=== PATIENT | male | born 1935 | race Caucasian/White ===

== ENCOUNTER 2019-05-16 09:51 | Outpatient (CLI) | payer MEDICARE, SELFPAY ==
[2019-05-16 10:24] LABS: Add Urine Microscopic? YES; Appearance Urine Clear (Clear); Bilirubin Urine Negative (Negative); Blood Urine Negative (Negative); Color Urine Yellow (Yellow); Glucose Urine UA Negative (Negative); Hyaline Casts Urine 30-49 /lpf; Ketones Urine Negative (Negative); Leukocyte Esterase Ur Negative LEU/UL (NEGATIVE); Mucus Urine Rare /lpf; Nitrate Urine Negative (Negative); Protein Urine Negative (Negative); Specific Grav Ur 1.018 (1.001-1.035); WBC Urine 0-3 /hpf (0-3)
== END 2019-05-16 09:52 | disposition home or self-care (01) ==
LOC: ANHLAB 09:53
PROVIDERS: PCP Family Medicine; Visit Provider Physician Assistant
DX: R31.9 Hematuria, unspecified (principal)
CPT/HCPCS: 81001; 87086

== ENCOUNTER 2019-07-03 14:59 | Outpatient (CLI) | payer MEDICARE, SELFPAY ==
[2019-07-03 15:16] LABS: Basophils Percent Auto 0.2 % (0.2-1.2); Eosinophils Percent Auto 0.3 % (0-4.4); Hematocrit 41.1 % (42.0-52.0); Hemoglobin 13.1 g/dL (14.0-18.0); Immature Granulocyte Absolute 0.04 K/mm3 (0.00-0.031); Immature Granulocyte Percent A 0.6 % (0-0.5); Lymphocytes Absolute Auto 1.82 K/mm3 (0.9-3.2); Lymphocytes Percent Auto 28.6 % (18.3-44.2); Mean Corpuscular HGB Conc 31.9 g/dl (32-36); Mean Corpuscular Volume 87.8 fl (80-100); Mean Platelet Volume 8.6 fl (7.4-10.4); Monocytes Absolute Auto 1.1 K/mm3 (0.1-0.6); Monocytes Percent Auto 17.1 % (2.6-8.5); Neutrophils Absolute Auto 3.4 K/mm3 (1.3-6.7); Neutrophils Percent Auto 53.2 % (45.5-73.1); Platelet Count Result 297 k/mm3 (150-375); Red Blood Count 4.68 M/mm3 (4.6-6.20); Red Cell Distribution Width 13.4 % (11.5-14.5); White Blood Count 6.4 K/mm3 (4.5-10.0)
[2019-07-03 16:44] LABS: Iron 43 ug/dL (49-181)
[2019-07-03 16:54] LABS: Percent Iron Saturation 16 % (20-50)
[2019-07-03 19:46] LABS: Alanine Aminotransferase 20 U/L (4-50); Albumin Level 4.5 g/dL (3.5-5.1); Alkaline Phosphatase 107 U/L (38-126); Aspartate Amino Transferase 26 U/L (17-59); Bilirubin,Total 0.4 mg/dL (0.2-1.3); Blood Urea Nitrogen 16 mg/dL (9-20); Calcium 9.2 mg/dL (8.4-10.2); Carbon Dioxide 28 mmol/L (22-30); Chloride 97 mmol/L (98-107); Estimated Glomerular Filt Rate > 60; Glucose 95 mg/dL (75-110); Lactate Dehydrogenase 403 U/L (313-618); Potassium 4.9 mmol/L (3.4-5.0); Sodium 137 mmol/L (137-145)
[2019-07-03 21:14] LABS: Folic Acid > 20.0 ng/mL (2.76->20)
== END 2019-07-03 15:00 | disposition home or self-care (01) ==
LOC: ANHLAB 15:02
PROVIDERS: PCP Family Medicine; Visit Provider Internal Medicine Hematology & Oncology
DX: D72.819 Decreased white blood cell count, unspecified (principal); D64.9 Anemia, unspecified
CPT/HCPCS: 36415; 80053; 82607; 82728; 82746; 83540; 83550; 83615; 85025; 86038; 88184; 88185

== ENCOUNTER 2019-07-09 07:40 | Outpatient (CLI) | payer MEDICARE, SELFPAY ==
--- NOTE | ~2019-07-09 | US_ITS ---
EXAMINATION: US abdomen complete DATE: 07/09/2019 08:19 INDICATION: Leukopenia TECHNIQUE: Multiple grayscale and Doppler ultrasound images of the abdomen were obtained. COMPARISON: CT, 11/17/2010 FINDINGS: The head and and body of the pancreas are normal. The pancreatic tail is obscured by bowel gas. Cysts of the liver measuring up to 1.4 cm are stable since the comparison CT examination. The l iver is normal with normal echogenicity and echotexture. No surface nodularity. Normal hepatopetal fl ow in the main portal vein. The gallbladder is normal with no abnormal wall thickening, pericholecyst ic fluid or stones. The normal common bile duct measures 7 mm. There was no sonographic Eastman sign. The visualized portions of the aorta and inferior vena cava are normal. The right kidney measures 10.4 x 4.9 x 4.9 cm. The left kidney measures 12.1 x 5.1 x 5.5 cm. The kidn eys demonstrate normal parenchymal echogenicity. There is no hydronephrosis. The spleen is normal in appearance and measures 10.9 cm cm. IMPRESSION: 1. No sonographic correlate for the patient's symptoms. Reviewed, dictated and finalized at location B.
== END 2019-07-09 07:41 | disposition home or self-care (01) ==
LOC: ANHIMG 07:44
PROVIDERS: PCP Family Medicine; Visit Provider Internal Medicine Hematology & Oncology
DX: D72.819 Decreased white blood cell count, unspecified (principal)
CPT/HCPCS: 76700

== ENCOUNTER 2019-10-22 09:14 | Outpatient (CLI) | payer MEDICARE, SELFPAY ==
[2019-10-22 09:41] LABS: Basophils Percent Auto 0.2 % (0.2-1.2); Eosinophils Absolute Auto 0.1 K/mm3 (0-0.3); Eosinophils Percent Auto 1.6 % (0-4.4); Hematocrit 42.4 % (42.0-52.0); Hemoglobin 13.5 g/dL (14.0-18.0); Immature Granulocyte Absolute 0.02 K/mm3 (0.00-0.031); Immature Granulocyte Percent A 0.5 % (0-0.5); Lymphocytes Absolute Auto 1.63 K/mm3 (0.9-3.2); Mean Corpuscular HGB Conc 31.8 g/dl (32-36); Mean Corpuscular Hemoglobin 27.2 pg (26-34); Mean Corpuscular Volume 85.5 fl (80-100); Mean Platelet Volume 9.3 fl (7.4-10.4); Monocytes Absolute Auto 0.8 K/mm3 (0.1-0.6); Monocytes Percent Auto 17.9 % (2.6-8.5); Neutrophils Absolute Auto 1.8 K/mm3 (1.3-6.7); Neutrophils Percent Auto 41.8 % (45.5-73.1); Platelet Count Result 348 k/mm3 (150-375); Red Blood Count 4.96 M/mm3 (4.6-6.20); Red Cell Distribution Width 13.8 % (11.5-14.5); White Blood Count 4.3 K/mm3 (4.5-10.0)
[2019-10-22 11:38] LABS: Alanine Aminotransferase 18 U/L (4-50); Albumin Level 4.4 g/dL (3.5-5.1); Alkaline Phosphatase 84 U/L (38-126); Aspartate Amino Transferase 27 U/L (17-59); Bilirubin,Total 0.8 mg/dL (0.2-1.3); Blood Urea Nitrogen 12 mg/dL (9-20); Carbon Dioxide 26 mmol/L (22-30); Chloride 102 mmol/L (98-107); Estimated Glomerular Filt Rate > 60; Glucose 92 mg/dL (75-110); Iron 85 ug/dL (49-181); Potassium 4.9 mmol/L (3.4-5.0); Sodium 138 mmol/L (137-145)
[2019-10-22 11:47] LABS: Percent Iron Saturation 33 % (20-50)
== END 2019-10-22 09:15 | disposition home or self-care (01) ==
PROVIDERS: PCP Family Medicine; Visit Provider Internal Medicine Hematology & Oncology
DX: D64.9 Anemia, unspecified (principal); D72.819 Decreased white blood cell count, unspecified
CPT/HCPCS: 36415; 80053; 82728; 83540; 83550; 85025

== ENCOUNTER 2019-11-26 06:43 | Outpatient (CLI) | payer MEDICARE, SELFPAY ==
[2019-11-26 07:14] LABS: Add Urine Microscopic? NO; Appearance Urine Clear (Clear); Bilirubin Urine Negative (Negative); Blood Urine Negative (Negative); Color Urine Yellow (Yellow); Glucose Urine UA Negative (Negative); Ketones Urine Negative (Negative); Leukocyte Esterase Ur Negative LEU/UL (NEGATIVE); Nitrate Urine Negative (Negative); Protein Urine Negative (Negative); Specific Grav Ur 1.016 (1.001-1.035); Urobilinogen Urine Negative mg/dL (<2.0)
[2019-11-26 07:27] LABS: Alanine Aminotransferase 18 U/L (4-50); Albumin Level 4.2 g/dL (3.5-5.1); Alkaline Phosphatase 79 U/L (38-126); Anion Gap 8 mmol/L (8-16); Aspartate Amino Transferase 30 U/L (17-59); Bilirubin,Total 0.6 mg/dL (0.2-1.3); Blood Urea Nitrogen 20 mg/dL (9-20); Calcium 8.9 mg/dL (8.4-10.2); Carbon Dioxide 28 mmol/L (22-30); Chloride 102 mmol/L (98-107); Estimated Glomerular Filt Rate 58; Glucose 93 mg/dL (75-110); Potassium 4.7 mmol/L (3.4-5.0); Sodium 138 mmol/L (137-145)
== END 2019-11-26 06:44 | disposition home or self-care (01) ==
PROVIDERS: PCP Family Medicine; Visit Provider Physician Assistant
DX: R31.9 Hematuria, unspecified (principal); I11.9 Hypertensive heart disease without heart failure
CPT/HCPCS: 36415; 80053; 81003

== ENCOUNTER 2020-04-26 09:02 | Outpatient (CLI) | payer MEDICARE, SELFPAY ==
[2020-04-26 09:20] LABS: Basophils Percent Auto 0.2 % (0.2-1.2); Eosinophils Absolute Auto 0.1 K/mm3 (0-0.3); Eosinophils Percent Auto 1.4 % (0-4.4); Hematocrit 46.9 % (42.0-52.0); Hemoglobin 15.1 g/dL (14.0-18.0); Immature Granulocyte Absolute 0.06 K/mm3 (0.00-0.031); Immature Granulocyte Percent A 1.4 % (0-0.5); Lymphocytes Absolute Auto 1.55 K/mm3 (0.9-3.2); Lymphocytes Percent Auto 35.1 % (18.3-44.2); Mean Corpuscular HGB Conc 32.2 g/dl (32-36); Mean Corpuscular Hemoglobin 26.8 pg (26-34); Mean Corpuscular Volume 83.3 fl (80-100); Monocytes Absolute Auto 0.8 K/mm3 (0.1-0.6); Monocytes Percent Auto 17.5 % (2.6-8.5); Neutrophils Percent Auto 44.4 % (45.5-73.1); Platelet Count Result 386 k/mm3 (150-375); Red Blood Count 5.63 M/mm3 (4.6-6.20); Red Cell Distribution Width 13.6 % (11.5-14.5); White Blood Count 4.4 K/mm3 (4.5-10.0)
[2020-04-26 09:25] LABS: Atypical Lymphocytes Present
[2020-04-26 11:27] LABS: Iron 103 ug/dL (49-181)
[2020-04-26 11:36] LABS: Percent Iron Saturation 36 % (20-50)
[2020-04-26 12:34] LABS: Alanine Aminotransferase 24 U/L (4-50); Albumin Level 4.2 g/dL (3.5-5.1); Alkaline Phosphatase 82 U/L (38-126); Aspartate Amino Transferase 31 U/L (17-59); Bilirubin,Total 0.8 mg/dL (0.2-1.3); Blood Urea Nitrogen 11 mg/dL (9-20); Calcium 9.1 mg/dL (8.4-10.2); Carbon Dioxide 31 mmol/L (22-30); Estimated Glomerular Filt Rate > 60; Glucose 154 mg/dL (75-110)
[2020-04-26 14:22] LABS: Anion Gap 7 mmol/L (8-16); Chloride 100 mmol/L (98-107); Potassium 4.4 mmol/L (3.4-5.0); Sodium 138 mmol/L (137-145)
== END 2020-04-26 09:03 | disposition home or self-care (01) ==
LOC: ANHLAB 09:04
PROVIDERS: PCP Family Medicine; Visit Provider Internal Medicine Hematology & Oncology
DX: D64.9 Anemia, unspecified (principal)
CPT/HCPCS: 36415; 80053; 82728; 83540; 83550; 85025

== ENCOUNTER 2020-12-29 06:50 | Outpatient (CLI) | payer MEDICARE, SELFPAY ==
[2020-12-29 07:25] LABS: Hematocrit 51.5 % (42.0-52.0); Hemoglobin 16.5 g/dL (14.0-18.0); Mean Corpuscular Hemoglobin 28.4 pg (26-34); Mean Corpuscular Volume 88.8 fl (80-100); Mean Platelet Volume 9.3 fl (7.4-10.4); Platelet Count Result 557 k/mm3 (150-375); Red Cell Distribution Width 15.9 % (11.5-14.5); White Blood Count 6.2 K/mm3 (4.5-10.0)
[2020-12-29 07:29] LABS: Add Urine Microscopic? YES; Appearance Urine Clear (Clear); Bilirubin Urine Negative (Negative); Blood Urine Negative (Negative); Color Urine Yellow (Yellow); Glucose Urine UA Negative (Negative); Ketones Urine Negative (Negative); Leukocyte Esterase Ur Negative LEU/UL (NEGATIVE); Mucus Urine Rare /lpf; Nitrate Urine Negative (Negative); Protein Urine 1+ mg/dL (Negative); Specific Grav Ur 1.016 (1.001-1.035); Squamous Epithelial Cell Urine Rare /hpf (Few); Urobilinogen Urine Negative mg/dL (<2.0); WBC Urine 0-3 /hpf (0-3)
[2020-12-29 07:36] LABS: Alanine Aminotransferase 26 U/L (4-50); Albumin Level 4.4 g/dL (3.5-5.1); Alkaline Phosphatase 84 U/L (38-126); Anion Gap 10 mmol/L (8-16); Aspartate Amino Transferase 47 U/L (17-59); Blood Urea Nitrogen 11 mg/dL (9-20); Calcium 9.4 mg/dL (8.4-10.2); Carbon Dioxide 30 mmol/L (22-30); Chloride 102 mmol/L (98-107); Cholesterol 74 mg/dL (0-200); Estimated Glomerular Filt Rate > 60; Glucose 102 mg/dL (65-110); HDL Direct 24 mg/dL; Sodium 142 mmol/L (137-145); Triglycerides 85 mg/dL (<150)
[2020-12-29 07:54] LABS: LDL Cholesterol Direct 36 mg/dL
== END 2020-12-29 06:51 | disposition home or self-care (01) ==
PROVIDERS: PCP Family Medicine; Visit Provider Family Medicine
DX: E78.2 Mixed hyperlipidemia (principal); I11.9 Hypertensive heart disease without heart failure; D50.9 Iron deficiency anemia, unspecified; S72.111A Displaced fracture of greater trochanter of right femur, initial encounter for closed fracture; Z00.00 Encounter for general adult medical examination without abnormal findings
CPT/HCPCS: 36415; 80053; 80061; 81001; 84443; 85027

== ENCOUNTER 2021-07-05 13:56 | Outpatient (CLI) | payer MEDICARE, SELFPAY ==
[2021-07-05 14:52] LABS: Alanine Aminotransferase 22 U/L (4-50); Albumin Level 4.4 g/dL (3.5-5.1); Alkaline Phosphatase 87 U/L (38-126); Anion Gap 6 mmol/L (8-16); Aspartate Amino Transferase 80 U/L (17-59); Bilirubin,Total 0.9 mg/dL (0.2-1.3); Blood Urea Nitrogen 14 mg/dL (9-20); Calcium 8.6 mg/dL (8.4-10.2); Carbon Dioxide 32 mmol/L (22-30); Chloride 100 mmol/L (98-107); Estimated Glomerular Filt Rate > 60; Glucose 102 mg/dL (65-110); Potassium 4.2 mmol/L (3.4-5.0); Sodium 138 mmol/L (137-145)
== END 2021-07-05 13:57 | disposition home or self-care (01) ==
PROVIDERS: PCP Family Medicine; Visit Provider Family Medicine
DX: I11.9 Hypertensive heart disease without heart failure (principal)
CPT/HCPCS: 36415; 80053

== ENCOUNTER 2022-01-23 10:27 | Outpatient (CLI) | payer MEDICARE, SELFPAY ==
[2022-01-23 10:58] LABS: Basophils Absolute Auto 0.1 K/mm3 (0.0-0.1); Basophils Percent Auto 1.2 % (0.2-1.2); Eosinophils Absolute Auto 0.1 K/mm3 (0-0.3); Hematocrit 68.2 % (42.0-52.0); Hemoglobin 21.2 g/dL (14.0-18.0); Immature Granulocyte Absolute 0.51 K/mm3 (0.00-0.031); Immature Granulocyte Percent A 4.5 % (0-0.5); Lymphocytes Absolute Auto 1.44 K/mm3 (0.9-3.2); Lymphocytes Percent Auto 12.7 % (18.3-44.2); Mean Corpuscular HGB Conc 31.1 g/dl (32-36); Mean Corpuscular Hemoglobin 26.7 pg (26-34); Mean Corpuscular Volume 85.9 fl (80-100); Mean Platelet Volume 9.4 fl (7.4-10.4); Monocytes Absolute Auto 1.3 K/mm3 (0.1-0.6); Monocytes Percent Auto 11.3 % (2.6-8.5); Neutrophils Absolute Auto 7.8 K/mm3 (1.3-6.7); Neutrophils Percent Auto 69.3 % (45.5-73.1); Platelet Count Result 676 k/mm3 (150-375); Red Blood Count 7.94 M/mm3 (4.6-6.20); Red Cell Distribution Width 19.9 % (11.5-14.5); White Blood Count 11.3 K/mm3 (4.5-10.0)
[2022-01-23 11:07] LABS: Alanine Aminotransferase 25 U/L (6-50); Albumin Level 4.4 g/dL (3.5-5.1); Alkaline Phosphatase 103 U/L (38-126); Anion Gap 14 mmol/L (8-16); Aspartate Amino Transferase 63 U/L (17-59); Bilirubin,Total 1.1 mg/dL (0.2-1.3); Blood Urea Nitrogen 15 mg/dL (9-20); Calcium 9.2 mg/dL (8.4-10.2); Carbon Dioxide 31 mmol/L (22-30); Chloride 97 mmol/L (98-107); Estimated Glomerular Filt Rate > 60; Glucose 104 mg/dL (65-110); Phosphorus 4.5 mg/dL (2.5-4.5); Potassium 4.4 mmol/L (3.4-5.0); Sodium 142 mmol/L (137-145)
== END 2022-01-23 10:28 | disposition home or self-care (01) ==
LOC: ANHLAB 10:34
PROVIDERS: PCP Family Medicine; Visit Provider Ophthalmology
DX: H34.8110 Central retinal vein occlusion, right eye, with macular edema (principal); H18.20 Unspecified corneal edema; H35.82 Retinal ischemia; Z96.1 Presence of intraocular lens
CPT/HCPCS: 36415; 80069; 80076; 85025

== ENCOUNTER 2022-01-28 12:52 | Emergency (ER) | payer MEDICARE, SELFPAY ==
--- NOTE | ~2022-01-28 | CT_ITS ---
EXAMINATION: CT chest abdomen pelvis w con DATE: 01/28/2022 15:43 INDICATION: left flank bruising, erythrocytosis . TECHNIQUE: Computed tomography (CT) of the chest, abdomen, and pelvis was performed with 100 mL Omnip aque-350 intravenous contrast. Automated exposure control and iterative reconstruction technique were employed. The dose-length product was 899.28 mGy-cm. COMPARISON: X-ray 01/28/2022, CT 11/17/2010. FINDINGS: Thoracic aorta: Moderate arch calcification. Lung parenchyma and airways: Biapical pleural scarring. Senescent change. Calcified right lower lobe granuloma. Mild dependent scar/atelectasis. Minimal tracheal secretions, airways otherwise clear. Thoracic inlet, axillae and chest wall: No thyroid or soft tissue mass. No axillary lymphadenopathy. Intact sternotomy wires. Prior CABG. Mediastinum: No mass or lymphadenopathy. Calcified right hilar nodes. Heart and pericardium: Normal heart size. No pericardial effusion. Coronary artery calcifications: Heavy. Pleura: No effusion or mass. 6 mm right posterior pleural calcification possibly from prior tube plac ement. Thoracic bones: No acute osseous finding in the chest. ABDOMEN/PELVIS: Liver: Enlarged. Multiple hepatic cysts and hypodensities that are too small to characterize. Biliary/Gallbladder: Gallbladder is collapsed. No bile duct dilation. Pancreas: No mass or duct dilation. Spleen: Enlarged. Granulomatous calcifications. Adrenals:No mass. Kidneys: Multiple bilateral hypodensities that are too small to characterize but likely represent cys ts. Punctate nonobstructive right upper and left midpole calcifications. No suspicious mass or hydron ephrosis. GI tract: No small or large bowel dilation. Calcific/ossific intraluminal small bowel density in the right lower quadrant, not significantly unchanged and of doubtful clinical significance. Normal appen deonte. Mesentery/Peritoneum: No ascites, mass, or free air. Retroperitoneum: No mass. Uncomplicated appearing aortoiliac graft crossing a fusiform infrarenal abd ominal aortic aneurysm. Atherosclerotic abdominal aortic and/or arterial calcifications. Pelvis: Distended urinary bladder. Prostatomegaly. Soft Tissues: Small flank contusion on the left. Fat-containing bilateral inguinal hernias. Right hyd rocele. Abdominopelvic bones: No acute osseous finding in the abdomen/pelvis. IMPRESSION: Minimal tracheal secretions. Hepatosplenomegaly. Left flank contusion. Chronic/incidental findings de tailed above. Reviewed, dictated and finalized at location K. IMPRESSION: Minimal tracheal secretions. Hepatosplenomegaly. Left flank contusion. Chronic/ incidental findings detailed above.
--- NOTE | ~2022-01-28 | XR_ITS ---
EXAMINATION: XR ribs LT 2V w CXR 2V DATE: 01/28/2022 14:10 INDICATION: Left posterior rib injury. TECHNIQUE: Frontal and lateral views of the chest and 2 views on 3 radiographs of the left ribs were obtained. COMPARISON: Chest single view 01/12/2007 FINDINGS: CHEST TWO VIEWS: There is mild scarring at right lung apex. A calcified right lung nodule is consiste nt with old granulomatous disease. No pleural effusion or pneumothorax. The heart size is normal. Med evan sternotomy wires and mediastinal surgical clips are seen, likely from prior coronary artery bypas s grafting. There is a stent graft in abdominal aorta. LEFT RIBS: There is no rib fracture. IMPRESSION: 1. No rib fracture. Reviewed, dictated and finalized at location A. IMPRESSION: 1. No rib fracture.
[2022-01-28 12:59] VITALS: BP 199/94; PULSE 91; RESP 18; TEMP 36.2; O2SAT 96
[2022-01-28 13:28] VITALS: BP 212/91; PULSE 94; RESP 22; RESP 24; O2SAT 97
--- NOTE | 2022-01-28 13:33 | ECG_ITS ---
Measurements Intervals Gleason Rate: 82 P: 62 DC: 181 QRS: 75 QRSD: 101 T: 14 QT: 362 QTc: 424 Interpretive Statements SINUS RHYTHM POSSIBLE LEFT ATRIAL ENLARGEMENT CANNOT RULE OUT SEPTAL MYOCARDIAL INFARCTION, PROBABLY OLD ABNORMAL ECG NO PREVIOUS ECG AVAILABLE FOR COMPARISON Electronically Signed On 01-28-2022 15:36:08 CDT by Jordan Duong M.D.
--- NOTE | 2022-01-28 13:42 | ED.RECABL ---
HPI - Recheck/Abnormal Lab/Rx General Chief Complaint: Recheck/Abnormal Lab/Rx <Alivia Pruitt PA-C - Last Filed: 01/28/22 18:20> Stated Complaint: jame got high blood pressure <Alivia Pruitt PA-C - Last Filed: 01/28/22 18:20> Time Seen by Provider: 01/28/22 13:24 <RUTHY Huff Last Filed: 01/28/22 18:20> Source: patient <RUTHY Huff Last Filed: 01/28/22 18:20> Mode of arrival: ambulatory <RUTHY Huff Last Filed: 01/28/22 18:20> Limitations: no limitations <RUTHY Huff Last Filed: 01/28/22 18:20> History of Present Illness HPI narrative: This is a 86 year old male that presents to the ER for hypertension. Reports he takes his blood pressure every day and noted it was elevated today. Reports it was in the 200s systolic. He takes Metoprolol and Amlodipine for his blood pressure. He has been taking these medications as prescribed. Denies any current symptoms. Denies chest pain, shortness of breath, or headache. <RUTHY Huff Last Filed: 01/28/22 18:20> Related Data Home Medications: Home Medications Medication Instructions Recorded Confirmed aspirin 81 mg tablet,delayed 81 mg PO DAILY 04/03/19 10/12/21 release atorvastatin 20 mg tablet 20 mg PO DAILY 04/03/19 10/12/21 ferrous sulfate 325 mg (65 mg 325 mg PO DAILY 04/03/19 10/12/21 iron) tablet multivitamin (One-A-Day Essential 1 tablet PO DAILY 04/03/19 10/12/21 tablet) <RUTHY Huff Last Filed: 01/28/22 18:20> Allergies/Adverse Reactions: Allergies Allergy/AdvReac Type Severity Reaction Status Date / Time No Known Allergies Allergy Verified 11/15/21 09:49 <RUTHY Huff Last Filed: 01/28/22 18:20> Review of Systems Review of Systems: CONSTITUTIONAL: Denies fever CARDIOVASCULAR: Denies chest pain, or edema. RESPIRATORY: Denies dyspnea. NEUROLOGIC: Denies headache <Alivia Pruitt PA-C - Last Filed: 01/28/22 18:20> All systems reviewed & are unremarkable except as noted in HPI and below <Alivia Pruitt PA-C - Last Filed: 01/28/22 18:20> PMFSH Past Medical History Medical History: Medical History (Updated 01/28/22 @ 18:17 by Alivia Pruitt PA-C) BPH (benign prostatic hyperplasia) Greater trochanter fracture History of coronary artery disease History of hyperlipidemia History of hypertension Skin cancer <Alivia Pruitt PA-C - Last Filed: 01/28/22 18:20> Surgical History Surgical History: Surgical History History of coronary angioplasty with insertion of stent S/P CABG (coronary artery bypass graft) Status post insertion of iliac artery stent <Alivia Pruitt PA-C - Last Filed: 01/28/22 18:20> Family History Family History: Family History Other Heart disease <Alivia Pruitt PA-C - Last Filed: 01/28/22 18:20> Social History Social History: Social History Smoking packs per day: 1.5 Smoking cigarettes per day: 30.0 Years smoked: 30 Smoking pack-years: 45.00 Smoking status: Former smoker Tobacco type: cigarettes Second hand tobacco smoke exposure: No Smoking end date: 04/16/83 Alcohol intake: never Substance use: never Substance use type: does not use Gender identity (if verbalized by the patient): Male <Alivia Pruitt PA-C - Last Filed: 01/28/22 18:20> Exam Narrative: GENERAL: Well-appearing, well-nourished, and in no acute distress. HEAD: Normocephalic, atraumatic. EYES: EOMI. CHEST: Clear to auscultation. No respiratory distress. No wheezes rales or rhonchi. Bruising noted to the left flank HEART: Regular rate and rhythm. No murmur heard. Normal peripheral pulses. ABDOMEN: Soft, nontender, nondistended, normal active bowel sounds. EXTREMITIES: Normal range of motion.
[2022-01-28 14:18] VITALS: BP 169/82; PULSE 85; RESP 20; O2SAT 97
[2022-01-28 14:27] LABS: Basophils Absolute Auto 0.1 K/mm3 (0.0-0.1); Basophils Percent Auto 0.9 % (0.2-1.2); Eosinophils Absolute Auto 0.1 K/mm3 (0-0.3); Hematocrit 66.3 % (42.0-52.0); Immature Granulocyte Absolute 0.37 K/mm3 (0.00-0.031); Immature Granulocyte Percent A 3.4 % (0-0.5); Mean Corpuscular HGB Conc 31.7 g/dl (32-36); Mean Corpuscular Hemoglobin 26.9 pg (26-34); Mean Platelet Volume 9.3 fl (7.4-10.4); Monocytes Absolute Auto 1.3 K/mm3 (0.1-0.6); Monocytes Percent Auto 11.7 % (2.6-8.5); Neutrophils Absolute Auto 7.5 K/mm3 (1.3-6.7); Platelet Count Result 667 k/mm3 (150-375); White Blood Count 10.7 K/mm3 (4.5-10.0)
[2022-01-28 14:37] LABS: Alanine Aminotransferase 26 U/L (6-50); Albumin Level 4.5 g/dL (3.5-5.1); Alkaline Phosphatase 127 U/L (38-126); Anion Gap 11 mmol/L (8-16); Aspartate Amino Transferase 89 U/L (17-59); Bilirubin,Total 1.3 mg/dL (0.2-1.3); Blood Urea Nitrogen 14 mg/dL (9-20); Carbon Dioxide 26 mmol/L (22-30); Chloride 101 mmol/L (98-107); Estimated CRCL calculation 58 ml/min; Estimated Glomerular Filt Rate > 60; Glucose 94 mg/dL (65-110); Sodium 138 mmol/L (137-145)
[2022-01-28 15:00] LABS: INR 1.5; Prothrombin Time 17.6 Seconds (11.1-14.7)
[2022-01-28 15:01] LABS: Partial Thromboplastin Time 52.4 SECONDS (22.3-36.8)
[2022-01-28 15:34] LABS: Lipase 70 U/L (23-300)
[2022-01-28 15:50] VITALS: BP 173/91; PULSE 80; RESP 17; O2SAT 97
[2022-01-28 18:51] VITALS: BP 178/88; PULSE 79; RESP 18; O2SAT 95
== END 2022-01-28 18:53 | disposition home or self-care (01) ==
PROVIDERS: Physician Assistant; Emergency Provider Emergency Medicine; PCP Family Medicine
DX: D75.1 Secondary polycythemia (principal); I10 Essential (primary) hypertension; I25.10 Atherosclerotic heart disease of native coronary artery without angina pectoris; E78.5 Hyperlipidemia, unspecified; N40.0 Benign prostatic hyperplasia without lower urinary tract symptoms; Z95.1 Presence of aortocoronary bypass graft; Z95.5 Presence of coronary angioplasty implant and graft; Z79.82 Long term (current) use of aspirin; Z87.891 Personal history of nicotine dependence
CPT/HCPCS: 36415; 71046; 71100; 71260; 74177; 80053; 83690; 85025; 85610; 85730; 93005; 99284; Q9967

== ENCOUNTER 2022-02-09 03:28 | Emergency (ER) | payer MEDICARE, SELFPAY ==
[2022-02-09 03:37] VITALS: BP 152/81; PULSE 104; RESP 20; TEMP 36; O2SAT 96
--- NOTE | 2022-02-09 04:18 | ED.GENADULT ---
HPI - General Adult General Chief complaint: Unspecified Stated complaint: wound bleeding Time Seen by Provider: 02/09/22 04:04 History of Present Illness HPI narrative: Patient is a 86-year-old gentleman who presents the emergency department with chief complaint of bleeding from Mohs procedure site. The patient reports that he had a Mohs procedure on his left forehead done at [facility] in the dermatology clinic the patient states that it was complicated with bleeding afterwards and was seen back in the clinic where they burned it and redressed it totally the dressing on for 48 hours the patient states tonight he woke up and had blood dripping out of his dressing. Related Data Home Medications Medication Instructions Recorded Confirmed aspirin 81 mg tablet,delayed 81 mg PO DAILY 04/03/19 02/01/22 release atorvastatin 20 mg tablet 20 mg PO DAILY 04/03/19 02/01/22 ferrous sulfate 325 mg (65 mg 325 mg PO DAILY 04/03/19 02/01/22 iron) tablet multivitamin (One-A-Day Essential 1 tablet PO DAILY 04/03/19 02/01/22 tablet) Allergies Allergy/AdvReac Type Severity Reaction Status Date / Time No Known Allergies Allergy Verified 02/09/22 03:36 Review of Systems Review of Systems: A 10 system review of systems was completed on the patient and is negative except for what is stated in the HPI. Nursing and ancillary documentation was reviewed. [facility] Past Medical History Medical History BPH (benign prostatic hyperplasia) Greater trochanter fracture History of coronary artery disease History of hyperlipidemia History of hypertension Skin cancer Surgical History Surgical History History of coronary angioplasty with insertion of stent S/P CABG (coronary artery bypass graft) Status post insertion of iliac artery stent Family History Family History Other Heart disease Social History Social History Smoking packs per day: 1.5 Smoking cigarettes per day: 30.0 Years smoked: 30 Smoking pack-years: 45.00 Smoking status: Former smoker Tobacco type: cigarettes Second hand tobacco smoke exposure: No Smoking end date: 04/16/83 Alcohol intake: never Substance use: never Substance use type: does not use Gender identity (if verbalized by the patient): Male Exam Narrative: GENERAL: Well-appearing, well-nourished, and in no acute distress. HEAD: Normocephalic, atraumatic. There is a Mohs procedure site in the left forehead area. This is actively bleeding EYES: PERRLA and EOMI. ENT: Nares clear, no rhinorrhea or epistaxis. Mucous membranes moist. NECK: Supple. CHEST: Clear to auscultation. No respiratory distress. HEART: Regular rate and rhythm. No murmur heard. Normal peripheral pulses. ABDOMEN: Soft, nontender, nondistended, normal active bowel sounds. EXTREMITIES: Normal range of motion. No edema. SKIN: Warm, dry, no rash. NEURO: No focal deficits. Alert and oriented x3. PSYCH: Normal mood and affect. Course Course Emergency Course: A large clot was removed from the area the site was cleaned and a small arterial bleed was present silver nitrate was used to cauterize the location and bleeding has been controlled. Vital Signs Vital signs: Vital Signs Temperature 36.0 C L 02/09/22 03:37 Pulse Rate 104 H 02/09/22 03:37 Respiratory Rate 20 02/09/22 03:37 Blood Pressure 152/81 H 02/09/22 03:37 Pulse Oximetry 96 02/09/22 03:37 Temperature 36.0 C L 02/09/22 03:37 Pulse Rate 104 H 02/09/22 03:37 Respiratory Rate 20 02/09/22 03:37 Blood Pressure 152/81 H 02/09/22 03:37 Pulse Oximetry 96 02/09/22 03:37 Medical Decision Making Vital Signs Vital Signs: Vital Signs Temperature 36.0 C L 02/09/22 03:37 Pulse R
[2022-02-09] MEDS: SILVER NITRATE (*SP) STICK (04:57)
[2022-02-09] MEDS: CELLULOSE OXIDIZED 2 x 3 INCH 1 PKT XX (04:57)
== END 2022-02-09 05:14 | disposition home or self-care (01) ==
LOC: ANHED 04:29
PROVIDERS: Emergency Provider Emergency Medicine; PCP Family Medicine
DX: L76.22 Postprocedural hemorrhage of skin and subcutaneous tissue following other procedure (principal); I25.810 Atherosclerosis of coronary artery bypass graft(s) without angina pectoris; I10 Essential (primary) hypertension; E78.5 Hyperlipidemia, unspecified; Z87.891 Personal history of nicotine dependence; Z95.1 Presence of aortocoronary bypass graft
CPT/HCPCS: 12001; 99282

== ENCOUNTER 2022-02-22 14:52 | Outpatient (CLI) | payer MEDICARE, SELFPAY ==
[2022-02-22 15:10] LABS: Hematocrit 64.7 % (42.0-52.0); Hemoglobin 20.7 g/dL (14.0-18.0); Mean Corpuscular Hemoglobin 27.1 pg (26-34); Mean Corpuscular Volume 84.7 fl (80-100); Mean Platelet Volume 9.2 fl (7.4-10.4); Platelet Count Result 766 k/mm3 (150-375); Red Blood Count 7.64 M/mm3 (4.6-6.20); Red Cell Distribution Width 20.1 % (11.5-14.5); White Blood Count 11.5 K/mm3 (4.5-10.0)
[2022-02-22 15:23] LABS: Band Neutrophils Percent 4 % (0-6); Lymphocytes Absolute Manual 1.95 K/mm3 (1.1-4.5); Monocytes Absolute Manual 1.03 K/mm3 (0.1-0.90); Monocytes Percent Manual 9 % (3-9); Neutrophils Absolute Manual 8.51 K/mm3 (1.3-6.7); Neutrophils Percent Manual 70 % (46-73); Total Cells Counted 100
[2022-02-22 15:24] LABS: Platelet Estimate Increased (Adequate)
[2022-02-22 15:25] LABS: Schistocytes None Seen (NORMAL)
[2022-02-22 16:11] LABS: Alanine Aminotransferase 30 U/L (6-50); Albumin Level 4.3 g/dL (3.5-5.1); Alkaline Phosphatase 109 U/L (38-126); Anion Gap 15 mmol/L (8-16); Aspartate Amino Transferase 37 U/L (17-59); Blood Urea Nitrogen 18 mg/dL (9-20); Calcium 8.8 mg/dL (8.4-10.2); Carbon Dioxide 23 mmol/L (22-30); Chloride 99 mmol/L (98-107); Estimated Glomerular Filt Rate > 60; Glucose 87 mg/dL (65-110); Potassium 5.4 mmol/L (3.4-5.0); Sodium 137 mmol/L (137-145)
[2022-02-25 12:25] LABS: Erythropoietin (EPO) 1.6 mIU/mL (2.6-18.5)
[2022-02-28 14:45] LABS: Exon 14; Gene JAK2; JAK2 V617F Mutation Detected (Not Detected); Mutation Frequency 85.6; Mutation Type missense; Specimen Source Blood
== END 2022-02-22 14:53 | disposition home or self-care (01) ==
LOC: ANHLAB 14:54
PROVIDERS: PCP Family Medicine; Visit Provider Internal Medicine Hematology & Oncology
DX: D45 Polycythemia vera (principal); D64.9 Anemia, unspecified
CPT/HCPCS: 36415; 80053; 81270; 82668; 85025

== ENCOUNTER 2022-03-01 10:31 | Outpatient (CLI) | payer MEDICARE, SELFPAY ==
--- NOTE | ~2022-03-01 | US_ITS ---
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 The degree of vessel stenosis is placed in one of the following categories: normal, <50%, 5 0-69%, >=70% but less than near-occlusion, near-occlusion, or total occlusion. Note that percent sten osis relative to normal distal artery lumen diameter is indirectly measured from velocity measurement s as described by Rohit, et al. Radiology 2003; 229:340-346. COMPARISON: None. FINDINGS: RIGHT: The right common carotid artery (CCA) peak systolic velocity (PSV) is 86 cm/s. The right internal car otid artery (ICA) PSV is 119 cm/s. The right ICA end-diastolic velocity (EDV) is 11 cm/s. The right I CA/CCA PSV ratio is 1.4. Grayscale and color Doppler images yield an estimate of <50% diameter reduct ion from plaque in the ICA. The external carotid artery (ECA) PSV is 152 cm/s. There is antegrade yazmin w in the right vertebral artery. LEFT: The left CCA PSV is 87 cm/s. The left ICA PSV is 187 cm/s. The left ICA EDV is 116 cm/s. The left ICA /CCA PSV ratio is 2.1. Grayscale and color Doppler images yield an estimate of 50-69% diameter reduct ion from plaque in the ICA. The ECA PSV is 149 cm/s. There is antegrade flow in the left vertebral ar austen. IMPRESSION: 1. <50% stenosis in the right internal carotid artery. 2. 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 Reviewed, dictated and finalized at location B. AL SUPPORT EMPLOYEE
== END 2022-03-01 10:32 | disposition home or self-care (01) ==
PROVIDERS: PCP Family Medicine; Visit Provider Ophthalmology
DX: H34.8110 Central retinal vein occlusion, right eye, with macular edema (principal); I65.23 Occlusion and stenosis of bilateral carotid arteries
CPT/HCPCS: 93880

== ENCOUNTER 2022-03-14 09:17 | Outpatient (CLI) | payer MEDICARE, SELFPAY ==
[2022-03-20 13:13] LABS: BCR/abl Prior Result Not Given
[2022-03-20 13:59] LABS: BCR/abl P190 Not Detected; BCR/abl P190 Chg YES; BCR/abl P210 Not Detected; BCR/abl P210 Chg YES
== END 2022-03-14 09:18 | disposition home or self-care (01) ==
LOC: ANHLAB 09:20
PROVIDERS: PCP Family Medicine; Visit Provider Internal Medicine Hematology & Oncology
DX: D45 Polycythemia vera (principal)
CPT/HCPCS: 36415; 81206; 81207

== ENCOUNTER 2022-05-04 11:58 | Outpatient (CLI) | payer MEDICARE, SELFPAY ==
--- NOTE | ~2022-05-04 | XR_ITS ---
XR chest 2V DATE: 05/04/2022 12:22 INDICATION: Shortness of breath TECHNIQUE: PA and lateral views COMPARISON: 01/28/2022 CT chest abdomen pelvis 01/28/2022 PA and lateral chest FINDINGS: Normal heart size. Aortic arch calcification. Status post sternotomy and coronary artery bypass graft surgery. Degenerative spurring of the thoracic spine. Osteopenia. No pulmonary infiltrate or consolidation, pleural effusion or pulmonary vascular congestion or pneumo thorax. IMPRESSION: No active cardiopulmonary disease Status post CABG Aortic calcification Reviewed, dictated and finalized at location L. IER
--- NOTE | ~2022-05-04 | XR_ITS ---
XR abdomen obstructive series DATE: 05/04/2022 12:22 INDICATION: Constipation TECHNIQUE: Supine and upright AP views COMPARISON: 01/28/2022 CT chest abdomen pelvis FINDINGS: Abdominal aortic and bilateral iliac endovascular stent is again noted. Status post sternotomy. There is a prominent amount of fecal material within the colon. No bowel obstruction or intraperitone al free air is detected. The psoas shadows are intact. No visceromegaly is evident. No significant abnormal calcification is n oted. The lung bases are clear. Heart size appears normal. IMPRESSION: Moderately prominent of fecal material in the colon. No evidence of bowel obstruction or free air Reviewed, dictated and finalized at Location A. Reviewed, dictated and finalized at location L. IRATORY PRACTITIONER
== END 2022-05-04 11:59 | disposition home or self-care (01) ==
PROVIDERS: PCP Family Medicine; Visit Provider Internal Medicine Hematology & Oncology
DX: K59.00 Constipation, unspecified (principal); I70.0 Atherosclerosis of aorta; Z95.1 Presence of aortocoronary bypass graft
CPT/HCPCS: 71046; 74019

== ENCOUNTER 2022-05-17 11:02 | Outpatient (CLI) | payer MEDICARE, SELFPAY ==
--- NOTE | ~2022-05-17 | XR_ITS ---
EXAMINATION: XR chest 2V DATE: 05/17/2022 13:03 INDICATION: Productive cough. TECHNIQUE: Frontal and lateral views of the chest were obtained. COMPARISON: Chest 2 views 05/04/22 FINDINGS: Calcified bilateral lung nodules and calcified hilar lymph nodes are consistent with old gr anulomatous disease. No pleural effusion or pneumothorax. The heart size is normal. Median sternotomy wires and mediastinal surgical clips are seen, likely from prior coronary artery bypass grafting. Th ere is mild chronic height loss of multiple vertebral bodies. IMPRESSION: 1. No acute cardiopulmonary disease. Reviewed, dictated and finalized at location A. FIXER
== END 2022-05-17 11:03 | disposition home or self-care (01) ==
PROVIDERS: PCP Family Medicine; Visit Provider Family Medicine
DX: R05.9 Cough, unspecified (principal)
CPT/HCPCS: 71046

== ENCOUNTER 2022-05-29 08:40 | Outpatient (CLI) | payer MEDICARE, SELFPAY ==
--- NOTE | ~2022-05-29 | XR_ITS ---
EXAMINATION: XR barium swallow modified DATE: 05/29/2022 09:52 INDICATION: Cough. Dysphagia. Aspiration. TECHNIQUE: The patient was given barium-containing material of multiple consistencies to swallow by t denise speech pathologist while I performed fluoroscopy. Fluoroscopy exposure time was 1.1 minutes. The n umber of fluoroscopy images saved to the PACS was 1. Dose-area product was 0.759 Gy-cm^2. FINDINGS: There is no laryngeal penetration or aspiration. IMPRESSION: 1. No laryngeal penetration or aspiration. 2. Please refer to the speech therapy report for recommendations. Reviewed, dictated and finalized at location A. OR GRINDING MILL OPERATOR
--- NOTE | 2022-05-29 10:12 | REHSTMBS ---
Assessment and note entered by Rebeca Lopez, [employer] Modified Barium Swallow Evaluation Feeding Type Recommended Oral Food Consistency Regular, Level 7 Liquid Consistency Thin (0) ST Clinical Summary MODIFIED BARIUM SWALLOW STUDY (MBSS) This patient was seen for a Modified Barium Swallow study at the request of his physician. Patient reported that for approximately the last four months, he has noticed that he coughs up phlegm about a half an hour after eating. He also reported a weight loss of 25 pounds in that amount of time as well and attributed to maybe not wanting to eat as much in order to avoid the coughing of phlegm. Patient denies sinus and allergy issues and history of gastroesophageal reflux disease. Patient consumed all consistencies today, thin liquid, pudding, crackers and fruit cocktail, with no evidence of penetration or aspiration and no significant pharyngeal residue. Results indicate this patient may remain on Regular Diet and Regular Liquid consistencies. No further Speech Therapy is indicated. Thank you for this referral.
== END 2022-05-29 08:41 | disposition home or self-care (01) ==
PROVIDERS: PCP Family Medicine; Visit Provider Family Medicine
DX: R05.3 Chronic cough (principal)
CPT/HCPCS: 92611

== ENCOUNTER 2022-11-20 10:35 | Outpatient (CLI) | payer MEDICARE, SELFPAY ==
[2022-11-20 10:50] LABS: Basophils Absolute Auto 0.1 K/mm3 (0.0-0.1); Basophils Percent Auto 0.8 % (0.2-1.2); Eosinophils Absolute Auto 0.2 K/mm3 (0-0.3); Eosinophils Percent Auto 1.3 % (0-4.4); Hematocrit 44.8 % (42.0-52.0); Hemoglobin 12.5 g/dL (14.0-18.0); Immature Granulocyte Absolute 0.31 K/mm3 (0.00-0.031); Immature Granulocyte Percent A 2.4 % (0-0.5); Lymphocytes Absolute Auto 1.93 K/mm3 (0.9-3.2); Lymphocytes Percent Auto 14.9 % (18.3-44.2); Mean Corpuscular HGB Conc 27.9 g/dl (32-36); Mean Corpuscular Hemoglobin 22.2 pg (26-34); Mean Corpuscular Volume 79.7 fl (80-100); Mean Platelet Volume 9.1 fl (7.4-10.4); Monocytes Absolute Auto 1.2 K/mm3 (0.1-0.6); Monocytes Percent Auto 9.2 % (2.6-8.5); Neutrophils Absolute Auto 9.3 K/mm3 (1.3-6.7); Neutrophils Percent Auto 71.4 % (45.5-73.1); Platelet Count Result 353 k/mm3 (150-375); Red Blood Count 5.62 M/mm3 (4.6-6.20); Red Cell Distribution Width 16.7 % (11.5-14.5)
[2022-11-20 10:55] LABS: Blood Urea Nitrogen 16 mg/dL (8-26); Carbon Dioxide 29 mmol/L (22-30); Chloride 96 mmol/L (98-109); Estimated Glomerular Filt Rate 16; Glucose 115 mg/dL (70-105); Ionized Calcium (POC) 1.14 mmol/L (1.11-1.31); Sodium 137 mmol/L (138-146)
[2022-11-20 11:51] LABS: Iron 25 ug/dL (49-181)
[2022-11-20 12:00] LABS: Percent Iron Saturation 7 % (20-50)
[2022-11-20 12:09] LABS: Vitamin B12 > 1000.0 pg/mL (239-931)
== END 2022-11-20 10:36 | disposition home or self-care (01) ==
LOC: ANHLAB 10:37
PROVIDERS: PCP Family Medicine; Visit Provider Internal Medicine Hematology & Oncology
DX: D64.9 Anemia, unspecified (principal); D45 Polycythemia vera
CPT/HCPCS: 36415; 80047; 82607; 82728; 83540; 83550; 85025

== ENCOUNTER 2022-12-11 15:44 | Emergency (ER) | payer MEDICARE, SELFPAY ==
--- NOTE | ~2022-12-11 | XR_ITS ---
EXAMINATION: [id number] DATE: 12/11/2022 16:26 INDICATION: Left knee pain. TECHNIQUE: 2 views of left knee were obtained. COMPARISON: None. FINDINGS: Bone alignment is normal. No fracture. There is mild osteoarthritis of lateral and patellof emoral compartments. There is chondrocalcinosis of the menisci. There is a large knee joint effusion. There is a loose body in the expected area of a Connors's cyst. IMPRESSION: 1. Mild left knee osteoarthritis. 2. Large left knee joint effusion. 3. Loose body in a Connors's cyst. Reviewed, dictated and finalized at location E.
[2022-12-11 16:05] VITALS: BP 150/80; PULSE 98; RESP 18; TEMP 36.7; O2SAT 100
--- NOTE | 2022-12-11 17:55 | ED.EXTPRO ---
HPI - Extremity Problem General Chief complaint: Extremity Problem,Nontraumatic Stated complaint: L knee pain Time Seen by Provider: 12/11/22 17:04 Source: patient Mode of arrival: ambulatory Limitations: no limitations History of Present Illness HPI Narrative: Patient is an 86-year-old male who presents to the ED with report of left knee pain. Patient reports he was working on a stepladder today and going up and down on his tip toes. He then went to [facility] and noticed some pain in his left knee with walking around the store. He otherwise denies any direct injury or fall. He has since developed some swelling in the left knee, as well. He has been elevating and icing his knee. He has not tried anything for pain and does not want anything currently. He is able to walk, but has pain with this. Denies any numbness or tingling. Denies any calf pain. Denies hip pain. Related Data Home Medications Medication Instructions Recorded Confirmed aspirin 81 mg tablet,delayed 81 mg PO DAILY 04/03/19 12/05/22 release atorvastatin 20 mg tablet 20 mg PO DAILY 04/03/19 12/05/22 multivitamin (One-A-Day Essential 1 tablet PO DAILY 04/03/19 12/05/22 tablet) allopurinol 300 mg tablet 300 mg PO DAILY 03/27/22 12/05/22 hydroxyurea 500 mg capsule 500 mg PO DAILY 03/30/22 12/05/22 Allergies Allergy/AdvReac Type Severity Reaction Status Date / Time No Known Allergies Allergy Verified 12/05/22 10:14 Review of Systems Review of Systems: CONSTITUTIONAL: Denies fever, chills, or sweats. CARDIOVASCULAR: Denies chest pain. RESPIRATORY: Denies dyspnea. MUSCULOSKELETAL: See HPI. NEUROLOGIC: Denies tingling, numbness, or weakness. All systems reviewed & are unremarkable except as noted in HPI and below [facility] Past Medical History Medical History BPH (benign prostatic hyperplasia) Greater trochanter fracture History of coronary artery disease History of hyperlipidemia History of hypertension Polycythemia vera Skin cancer Surgical History Surgical History History of coronary angioplasty with insertion of stent S/P CABG (coronary artery bypass graft) Status post insertion of iliac artery stent Family History Family History Other Heart disease Social History Social History Smoking packs per day: 1.5 Smoking cigarettes per day: 30.0 Years smoked: 30 Smoking pack-years: 45.00 Smoking status: Former smoker Tobacco type: cigarettes Second hand tobacco smoke exposure: No Smoking end date: 04/16/84 Alcohol intake: never Substance use: never Substance use type: does not use Living arrangements: with family Occupation/Education: retired Gender identity (if verbalized by the patient): Male Spiritual care concerns: No Exam Narrative: GENERAL: Elderly, well-nourished, non-toxic, in no acute distress. HEAD: Normocephalic, atraumatic. NECK: Supple. No adenopathy, no masses. RESPIRATORY: Airway patent, respirations nonlabored. Clear to auscultation bilaterally, no rales, rhonchi, wheezing. CARDIOVASCULAR: Regular rate and rhythm without murmurs, rubs, or gallops. Pedal pulses 2+ and equal bilaterally. MUSCULOSKELETAL: Moves all extremities. Very mild limitations in left knee flexion and active extension due to discomfort. Mild swelling noted to left anterior knee with tenderness throughout medial and lateral joint lines. No significant tenderness with ballottement of patella. No warmth or erythema noted to knee. No wounds or abrasions. No calf tenderness. No lower leg swelling. SKIN: Warm, dry, normal color. No rashes. NEURO: A&O X3. Speech clear. Cranial nerves II-XII grossly intact. Steady gait. No ataxic movements. PSYCHIATRIC: Appropriate mood and affect.
[2022-12-11 18:17] VITALS: BP 147/98; PULSE 90; RESP 20; O2SAT 98
== END 2022-12-11 18:18 | disposition home or self-care (01) ==
PROVIDERS: Emergency Provider Physician Assistant; PCP Family Medicine
DX: S86.912A Strain of unspecified muscle(s) and tendon(s) at lower leg level, left leg, initial encounter (principal); M25.462 Effusion, left knee; I10 Essential (primary) hypertension; E78.5 Hyperlipidemia, unspecified; Z98.61 Coronary angioplasty status; X50.0XXA Overexertion from strenuous movement or load, initial encounter
CPT/HCPCS: 73560; 99283

== ENCOUNTER 2022-12-25 15:57 | Outpatient (CLI) | payer MEDICARE, SELFPAY ==
[2022-12-25 16:24] LABS: Hematocrit 43.7 % (42.0-52.0); Hemoglobin 12.8 g/dL (14.0-18.0); Mean Corpuscular HGB Conc 29.3 g/dl (32-36); Mean Corpuscular Volume 78.5 fl (80-100); Mean Platelet Volume 9.3 fl (7.4-10.4); Platelet Count Result 743 k/mm3 (150-375); Red Blood Count 5.57 M/mm3 (4.6-6.20); Red Cell Distribution Width 16.2 % (11.5-14.5); White Blood Count 21.2 K/mm3 (4.5-10.0)
[2022-12-25 16:37] LABS: Alanine Aminotransferase 39 U/L (6-50); Albumin Level 4.2 g/dL (3.5-5.1); Alkaline Phosphatase 100 U/L (38-126); Anion Gap 8 mmol/L (8-16); Aspartate Amino Transferase 61 U/L (17-59); Bilirubin,Total 0.5 mg/dL (0.2-1.3); Blood Urea Nitrogen 18 mg/dL (9-20); Calcium 8.8 mg/dL (8.4-10.2); Carbon Dioxide 30 mmol/L (22-30); Chloride 91 mmol/L (98-107); Estimated Glomerular Filt Rate > 60; Glucose 102 mg/dL (65-110); Potassium 4.3 mmol/L (3.4-5.0); Sodium 129 mmol/L (137-145)
[2022-12-25 16:50] LABS: Band Neutrophils Percent 3 % (0-6); Eosinophils Absolute Manual 0.84 K/mm3 (0.02-0.5); Eosinophils Percent Manual 4 % (0-4); Lymphocytes Absolute Manual 4.87 K/mm3 (1.1-4.5); Lymphocytes Percent Manual 23 % (18-44); Monocytes Percent Manual 9 % (3-9); Neutrophils Absolute Manual 13.35 K/mm3 (1.3-6.7); Neutrophils Percent Manual 60 % (46-73); Total Cells Counted 100
[2022-12-25 16:51] LABS: Myelocytes Percent 1 %; Platelet Estimate Increased (Adequate)
[2022-12-25 16:52] LABS: Anisocytosis 1+ (NORMAL); Hypochromasia 1+ (NORMAL); Schistocytes None Seen (NORMAL); Stomatocytes 1+ (NORMAL)
[2022-12-25 16:53] LABS: Atypical Lymphocytes Present
[2022-12-25 17:42] LABS: Folic Acid > 20.0 ng/mL (2.76->20); Vitamin B12 > 1000.0 pg/mL (239-931)
== END 2022-12-25 15:58 | disposition home or self-care (01) ==
PROVIDERS: Visit Provider Family Medicine
DX: R53.83 Other fatigue (principal)
CPT/HCPCS: 36415; 80053; 82607; 82746; 84443; 85025

== ENCOUNTER 2022-12-27 13:47 | Observation (INO) | payer MEDICARE, SELFPAY ==
[2022-12-27] VITALS (32 sets, daily range): BP systolic 118–177; BP diastolic 58–78; PULSE 84–105; RESP 15–30; TEMP 36.3–36.4; O2SAT 97–100; BMI 22.6
--- NOTE | ~2022-12-27 | XR_ITS ---
EXAMINATION: XR chest 1V portable DATE: 12/27/2022 17:01 INDICATION: Leukocytosis. Weakness. TECHNIQUE: A single frontal view of the chest was obtained. COMPARISON: Chest 2 views 05/17/2022 FINDINGS: Calcified pulmonary nodules and calcified hilar lymph nodes are consistent with old granulo matous disease. No pleural effusion or pneumothorax. The heart size is normal. Median sternotomy wire s and mediastinal surgical clips are seen, likely from prior coronary artery bypass grafting. IMPRESSION: 1. No acute cardiopulmonary disease. Reviewed, dictated and finalized at location A.
[2022-12-27 14:55] LABS: Hematocrit 42.9 % (42.0-52.0); Hemoglobin 12.6 g/dL (14.0-18.0); Mean Corpuscular HGB Conc 29.4 g/dl (32-36); Mean Corpuscular Hemoglobin 23.2 pg (26-34); Mean Platelet Volume 9.2 fl (7.4-10.4); Platelet Count Result 702 k/mm3 (150-375); Red Blood Count 5.43 M/mm3 (4.6-6.20); Red Cell Distribution Width 16.1 % (11.5-14.5); White Blood Count 21.4 K/mm3 (4.5-10.0)
[2022-12-27 15:06] LABS: Alanine Aminotransferase 36 U/L (6-50); Albumin Level 4.1 g/dL (3.5-5.1); Alkaline Phosphatase 92 U/L (38-126); Anion Gap 10 mmol/L (8-16); Aspartate Amino Transferase 53 U/L (17-59); Bilirubin,Total 0.4 mg/dL (0.2-1.3); Blood Urea Nitrogen 21 mg/dL (9-20); Calcium 8.5 mg/dL (8.4-10.2); Carbon Dioxide 27 mmol/L (22-30); Chloride 93 mmol/L (98-107); Estimated CRCL calculation 52 ml/min; Estimated Glomerular Filt Rate > 60; Glucose 101 mg/dL (65-110); Potassium 4.4 mmol/L (3.4-5.0); Sodium 130 mmol/L (137-145)
[2022-12-27 15:24] LABS: Band Neutrophils Percent 3 % (0-6); Eosinophils Absolute Manual 0.21 K/mm3 (0.02-0.5); Eosinophils Percent Manual 1 % (0-4); Lymphocytes Absolute Manual 1.92 K/mm3 (1.1-4.5); Monocytes Absolute Manual 2.56 K/mm3 (0.1-0.90); Monocytes Percent Manual 12 % (3-9); Neutrophils Absolute Manual 16.69 K/mm3 (1.3-6.7); Neutrophils Percent Manual 75 % (46-73); Total Cells Counted 100
[2022-12-27 15:25] LABS: Large Platelets Present; Platelet Estimate Increased (Adequate); Schistocytes None Seen (NORMAL)
[2022-12-27 15:26] LABS: Anisocytosis 2+ (NORMAL); Hypochromasia 1+ (NORMAL)
--- NOTE | 2022-12-27 16:47 | ED.GENADULT ---
HPI - General Adult General Chief complaint: Recheck/Abnormal Lab/Rx Stated complaint: elv. WBC- sent by dr Garcia Seen by Provider: 12/27/22 15:28 History of Present Illness HPI narrative: 87-year-old male presented the emergency department for evaluation of 16 days of increased generalized weakness. Patient did have follow-up with his primary care physician and had outpatient labs ordered showing a leukocytosis of 20. Patient was encouraged to present to the emergency department for evaluation. Patient denies any complaints other than feeling increasingly weak over the last 16 days. Patient reports he does take iron pills but has had dark tarry stools for part for the last 2 months. Patient has no prior history of an upper GI bleed and has no associated abdominal pain Related Data Home Medications Medication Instructions Recorded Confirmed aspirin 81 mg tablet,delayed 81 mg PO DAILY 04/03/19 12/12/22 release atorvastatin 20 mg tablet 20 mg PO DAILY 04/03/19 12/12/22 multivitamin (One-A-Day Essential 1 tablet PO DAILY 04/03/19 12/12/22 tablet) allopurinol 300 mg tablet 300 mg PO DAILY 03/27/22 12/12/22 hydroxyurea 500 mg capsule 500 mg PO DAILY 03/30/22 12/12/22 Allergies Allergy/AdvReac Type Severity Reaction Status Date / Time No Known Allergies Allergy Verified 12/27/22 13:48 Review of Systems Review of Systems: All systems reviewed & are unremarkable except as noted in HPI and below PMFSH Past Medical History Medical History BPH (benign prostatic hyperplasia) Greater trochanter fracture History of coronary artery disease History of hyperlipidemia History of hypertension Polycythemia vera Skin cancer Surgical History Surgical History History of coronary angioplasty with insertion of stent S/P CABG (coronary artery bypass graft) Status post insertion of iliac artery stent Family History Family History Other Heart disease Social History Social History Smoking packs per day: 1.5 Smoking cigarettes per day: 30.0 Years smoked: 30 Smoking pack-years: 45.00 Smoking status: Former smoker Tobacco type: cigarettes Second hand tobacco smoke exposure: No Smoking end date: 04/16/84 Alcohol intake: never Substance use: never Substance use type: does not use Living arrangements: with family Occupation/Education: retired Gender identity (if verbalized by the patient): Male Spiritual care concerns: No Exam Narrative: APPEARANCE: Well appearing, no pain, no distress, well-nourished. HEAD: normocephalic, atraumatic. EYES: PERRLA/EOMI, conjunctivae clear. NOSE: Normal no drainage EARS:TMS clear with good light reflex. NECK: Supple. No adenopathy, no masses. RESPIRATORY: Airway patent, respirations nonlabored. Clear to auscultation bilaterally, no rales, rhonchi, wheezing. CARDIOVASCULAR: Regular rate and rhythm without murmurs rubs or gallops. ABDOMINAL: Soft, nontender, nondistended, normal bowel sounds Rectal exam: Hemoccult positive with black tarry stool MUSCULOSKELETAL: Left knee pain, mild effusion with no erythema and normal range of motion NEURO: Alert. Cranial nerves II through XII intact. Good gait. Good coordination SKIN: Warm, dry. Normal Color Course Course Emergency Course: 87-year-old male present emergency department for evaluation of increased generalized weakness and a leukocytosis identified as outpatient. Patient's white blood cell count was 21.4. Patient's hemoglobin is 12.6. Patient was negative for influenza RSV and COVID. UA showed no evidence of urinary tract infection. Chest x-ray showed no evidence of pneumonia. Patient was Hemoccult positive and upper GI bleed can cause a leukocytosis. Patient had blood cultures order
[2022-12-27 17:15] LABS: CRP 0.5 mg/dL (<1.0)
[2022-12-27 17:20] LABS: Erythrocyte Sedimentation Rate 3 mm/hr (0-20)
[2022-12-27 17:40] LABS: Appearance Urine Clear (Clear); Bacteria Urine None Seen /hpf; Bilirubin Urine Negative (Negative); Blood Urine Negative (Negative); Color Urine Yellow (Yellow); Glucose Urine UA Negative (Negative); Ketones Urine Negative (Negative); Leukocyte Esterase Ur Negative LEU/UL (Negative); Nitrate Urine Negative (Negative); Protein Urine 1+ mg/dL (Negative); RBC Urine 0-2 /hpf (0-2); Specific Grav Ur 1.012 (1.001-1.035); Squamous Epithelial Cell Urine None seen /hpf (Few); Urobilinogen Urine 0.2 mg/dL (<2.0); WBC Urine 0-5 /hpf
[2022-12-27 17:44] LABS: Add Urine Microscopic? YES
[2022-12-27 18:10] LABS: Influenza A QL RT-PCR Negative (Negative); Influenza B QL RT-PCR Negative (Negative); RSV RNA, RT-PCR Negative (Negative); SARS-CoV-2 RNA PCR Negative (Negative)
[2022-12-27] MEDS: PIPERACILLN/TAZ 3.375GM/NS50ML 3.375 GM/50 ML BAG IVPB (18:35)
[2022-12-27] MEDS: PANTOPRAZOLE SODIUM IV 40 MG VIAL 80 MG IV PUSH (18:35)
[2022-12-27] MEDS: ONDANSETRON INJ 4 MG/2 ML VIAL IV PUSH (20:03)
--- NOTE | 2022-12-27 21:02 | ADMGEN ---
This patient, Osvaldo Santiago, was admitted to [address] [place] [address] Room 315-01 at 20:40. Patient/family oriented to hospital policies and general routines including ID bracelet, bed and alarms, visiting hours, pain management, procedures, bathroom and other care routines, personal items, smoking policy, room service/diet, and visiting hours. Information on how to activate the Rapid Response Team has been discussed. Patient/Family are encouraged to report perceived risks to care and to ask questions if they do not understand what they are told or what they should do.
--- NOTE | 2022-12-27 22:52 | PM.IMHP ---
H&P: HPI History of Present Illness Date/Time: 12/27/22 22:52 Chief Complaint: Lethargy Narrative: 87 y/o M presents here with lethargy for the last 16 days and dark/tarry stools x2-3 months with PMH of polycythemia vera (dx in 2021), BPH, CAD (CABG - triple bypass), HLD, HTN, and skin cancer. Patient reports lethargy for the last 16 days. States he has been unable to go up the steps to his bedroom since lethargy began. He endorses shortness of breath with ambulation/activity, requires rest for resolution of shortness of breath. Left knee pain as well, reports this is also a limiting factor for his activity level. He endorses an increase in swelling to the left knee over the last 2 weeks. Knee was recently aspirated 2 weeks ago, he is unsure of results. +Constipation, last bowel movement was this morning and he described it as small and hard. Stool has been dark/tarry for approximately 2-3 months. Currently on iron supplement and daily ASA 81 mg. Denies CP, abdominal pain, urinary symptoms, cough, N/V/D, or syncope. Review of Systems Review of Systems: All systems reviewed & are unremarkable except as noted in HPI and below PMFSH Past Medical History Medical History BPH (benign prostatic hyperplasia) Greater trochanter fracture History of coronary artery disease History of hyperlipidemia History of hypertension Polycythemia vera Skin cancer Surgical History Surgical History History of coronary angioplasty with insertion of stent S/P CABG (coronary artery bypass graft) Status post insertion of iliac artery stent Family History Family History Other Heart disease Social History Social History Smoking packs per day: 1.5 Smoking cigarettes per day: 30.0 Years smoked: 30 Smoking pack-years: 45.00 Smoking status: Former smoker Tobacco type: cigarettes Second hand tobacco smoke exposure: No Smoking end date: 04/16/84 Alcohol intake: never Substance use: never Substance use type: does not use Lack of Transportation: No Lack of Food: Never True Current Housing: I Have Housing Concerned About Future Housing: No Difficulty Paying Gas/Electric Bills: No Difficulty Paying for Meds: No Currently Unemployed: No Education: High School Diploma/GED Difficulty w/ Childcare or Family Care: No Living arrangements: with family Occupation/Education: retired Gender identity (if verbalized by the patient): Male Spiritual care concerns: No Meds Home Medications and Allergies Home Medications Medication Instructions Recorded Confirmed Type aspirin 81 mg tablet,delayed 81 mg PO DAILY 04/03/19 12/27/22 History release atorvastatin 20 mg tablet 20 mg PO DAILY 04/03/19 12/27/22 History multivitamin (One-A-Day Essential 1 tablet PO DAILY 04/03/19 12/27/22 History tablet) allopurinol 300 mg tablet 300 mg PO DAILY 03/27/22 12/27/22 History hydrochlorothiazide 12.5 mg tablet 12.5 mg PO DAILY #90 tabs 03/27/22 12/27/22 Rx hydroxyurea 500 mg capsule 500 mg PO DAILY 03/30/22 12/27/22 History metoprolol tartrate 25 mg tablet 12.5 mg PO BID #90 tabs 12/05/22 12/27/22 Rx tamsulosin 0.4 mg capsule See Rx Instructions .Route 12/11/22 12/27/22 Rx .COMPLEX #90 caps Dulcolax (magnesium hydroxide) 1,200 mg PO PRN PRN Constipation 12/27/22 12/27/22 History amlodipine 5 mg tablet 5 mg PO DAILY 12/27/22 12/27/22 History ferrous sulfate 325 mg PO BID 12/27/22 12/27/22 History Allergies Allergy/AdvReac Type Severity Reaction Status Date / Time No Known Allergies Allergy Verified 12/27/22 13:48 Vital Signs Vital Signs - 24 hr 12/27/22 14:01 12/27/22 14:42 12/27/22 14:43 Temperature 97.6 F Pulse Rate 95 91 89 Respiratory Rate 20 23 H Blood Pressu
[2022-12-27] MEDS: METOPROLOL TARTRATE 12.5 MG TABLET PO (23:57)
[2022-12-28] VITALS (9 sets, daily range): BP systolic 91–154; BP diastolic 54–79; PULSE 78–92; RESP 14–22; TEMP 36.1–37.1; O2SAT 97–99
[2022-12-28] MEDS: HYDROmorphone HCL INJ (*CRX) 1 MG/ML SYR 0.5 MG IV PUSH (00:19)
[2022-12-28 06:55] LABS: Hematocrit 46.3 % (42.0-52.0); Hemoglobin 13.3 g/dL (14.0-18.0); Mean Corpuscular HGB Conc 28.7 g/dl (32-36); Mean Corpuscular Hemoglobin 22.7 pg (26-34); Mean Platelet Volume 8.9 fl (7.4-10.4); Platelet Count Result 701 k/mm3 (150-375); Red Blood Count 5.86 M/mm3 (4.6-6.20); Red Cell Distribution Width 15.9 % (11.5-14.5); White Blood Count 18.6 K/mm3 (4.5-10.0)
[2022-12-28] MEDS: SODIUM CHLORIDE 0.9% IV 1,000 ML 100 ML IV CONT ×2 (07:02→18:00)
--- NOTE | 2022-12-28 07:15 | WPDGICN ---
Assessment and Plan Assessment and plan (1) GI (gastrointestinal bleed): Code(s): K92.2 - Gastrointestinal hemorrhage, unspecified Status: Acute Assessment and Plan: His stools have been dark for about 2 weeks. He denies having any epigastric pain. He denies using any NSAIDs. He had actually been started on iron I suspect because of the gradual drop in his blood counts from 18-12. (2) Generalized weakness: Code(s): R53.1 - Weakness Status: Acute Assessment and Plan: We are assuming this is due to blood loss he will his blood counts not as low as I would think would cause him to feel fatigued. (3) S/P CABG (coronary artery bypass graft): Code(s): Z95.1 - Presence of aortocoronary bypass graft Status: Acute Assessment and Plan: He takes aspirin daily but no other anticoagulant. (4) Polycythemia vera: Code(s): D45 - Polycythemia vera Status: Acute Assessment and Plan: he has been under the care of Dr. Reynolds, currently treated with hydroxyurea. He has also been started recently on iron. Plan EGD to be done this morning. Will also check stools for Hemoccult. Depending on results, he might need colonoscopy, although I would like to avoid that at his age if possible. GI Consult Note Consult date/time: 12/28/22 07:15 HPI: Osvaldo Santiago is a 87 year old male with a known history of polycythemia vera and also with history of coronary artery disease, status post CABG who for the past 2 weeks has become increasingly short of breath and lethargic. He is particularly dyspnea with exertion. He has had black stools for the past 2 weeks. His hemoglobin which was over 18 last March is now down to 12.6 , which is quite low for him Review of Systems Review of Systems: All systems reviewed & are unremarkable except as noted in HPI and below PMFSH Past Medical History Medical History BPH (benign prostatic hyperplasia) Greater trochanter fracture History of coronary artery disease History of hyperlipidemia History of hypertension Polycythemia vera Skin cancer Surgical History Surgical History History of coronary angioplasty with insertion of stent S/P CABG (coronary artery bypass graft) Status post insertion of iliac artery stent Family History Family History Other Heart disease Social History Social History Smoking packs per day: 1.5 Smoking cigarettes per day: 30.0 Years smoked: 30 Smoking pack-years: 45.00 Smoking status: Former smoker Tobacco type: cigarettes Second hand tobacco smoke exposure: No Smoking end date: 04/16/84 Alcohol intake: never Substance use: never Substance use type: does not use Lack of Transportation: No Lack of Food: Never True Current Housing: I Have Housing Concerned About Future Housing: No Difficulty Paying Gas/Electric Bills: No Difficulty Paying for Meds: No Currently Unemployed: No Education: High School Diploma/GED Difficulty w/ Childcare or Family Care: No Living arrangements: with family Occupation/Education: retired Gender identity (if verbalized by the patient): Male Spiritual care concerns: No Meds Home Medications and Allergies Home Medications Medication Instructions Recorded Confirmed Type aspirin 81 mg tablet,delayed 81 mg PO DAILY 04/03/19 12/27/22 History release atorvastatin 20 mg tablet 20 mg PO DAILY 04/03/19 12/27/22 History multivitamin (One-A-Day Essential 1 tablet PO DAILY 04/03/19 12/27/22 History tablet) allopurinol 300 mg tablet 300 mg PO DAILY 03/27/22 12/27/22 History hydrochlorothiazide 12.5 mg tablet 12.5 mg PO DAILY #90 tabs 03/27/22 12/27/22 Rx hydroxyurea 500 mg capsule 500 mg PO DAILY
[2022-12-28 07:51] LABS: Band Neutrophils Percent 8 % (0-6); Basophils Absolute Manual 0.37 K/mm3 (0.0-0.1); Basophils Percent Manual 2 % (0-1); Eosinophils Absolute Manual 0.55 K/mm3 (0.02-0.5); Eosinophils Percent Manual 3 % (0-4); Lymphocytes Absolute Manual 2.41 K/mm3 (1.1-4.5); Metamyelocytes Percent 1 %; Monocytes Percent Manual 7 % (3-9); Neutrophils Absolute Manual 13.76 K/mm3 (1.3-6.7); Neutrophils Percent Manual 66 % (46-73); Platelet Estimate Increased (Adequate); Total Cells Counted 100
[2022-12-28 07:52] LABS: Anisocytosis 2+ (NORMAL); Hypochromasia 1+ (NORMAL); Schistocytes None Seen (NORMAL)
[2022-12-28] MEDS: LACTATED RINGERS 1,000 ML 150 ML IV CONT (08:37)
--- NOTE | 2022-12-28 08:41 | WPDANESEPPF ---
Anes - Initial Pre Proc Eval Procedure: Operation Date: 12/28/22 14:30 Proposed Procedures p Esophagogastroduodenoscopy - Vicente Caro MD Date/Time: 12/28/22 08:41 Surgeon: Cameron Jamil MD Pre Op Diagnosis: Leukocytosis, Upper GI Bleed Patient Data Age: 87 Gender: M Height: 1.91 m Weight: 82.2 kg Last Vital Signs Temp 36.1 C L 12/28/22 08:32 Pulse 86 12/28/22 08:32 Resp 16 12/28/22 08:32 BP 154/60 H 12/28/22 08:32 Pulse Ox 99 12/28/22 08:32 O2 Del Method Room Air 12/28/22 08:32 Allergies Allergy/AdvReac Type Severity Reaction Status Date / Time No Known Allergies Allergy Verified 12/28/22 08:29 Home Medications Medication Instructions Recorded Confirmed Type aspirin 81 mg tablet,delayed 81 mg PO DAILY 04/03/19 12/27/22 History release atorvastatin 20 mg tablet 20 mg PO DAILY 04/03/19 12/27/22 History multivitamin (One-A-Day Essential 1 tablet PO DAILY 04/03/19 12/27/22 History tablet) allopurinol 300 mg tablet 300 mg PO DAILY 03/27/22 12/27/22 History hydrochlorothiazide 12.5 mg tablet 12.5 mg PO DAILY #90 tabs 03/27/22 12/27/22 Rx hydroxyurea 500 mg capsule 500 mg PO DAILY 03/30/22 12/27/22 History metoprolol tartrate 25 mg tablet 12.5 mg PO BID #90 tabs 12/05/22 12/27/22 Rx tamsulosin 0.4 mg capsule See Rx Instructions .Route 12/11/22 12/27/22 Rx .COMPLEX #90 caps Dulcolax (magnesium hydroxide) 1,200 mg PO PRN PRN Constipation 12/27/22 12/27/22 History amlodipine 5 mg tablet 5 mg PO DAILY 12/27/22 12/27/22 History ferrous sulfate 325 mg PO BID 12/27/22 12/27/22 History Laboratory Tests 12/27/22 12/27/22 12/27/22 14:49 17:05 17:25 WBC 21.4 H K/mm3 (4.5-10.0) RBC 5.43 M/mm3 (4.6-6.20) Hgb 12.6 L g/dL (14.0-18.0) Hct 42.9 % (42.0-52.0) MCV 79.0 L fl (80-100) MCH 23.2 L pg (26-34) MCHC 29.4 L g/dl (32-36) RDW 16.1 H % (11.5-14.5) Plt Count 702 H k/mm3 (150-375) MPV 9.2 fl (7.4-10.4) Immature Gran % (Auto) Not Reportable Neut % (Auto) Not Reportable Lymph % (Auto) Not Reportable J[place] % (Auto) Not Reportable Eos % (Auto) Not Reportable Baso % (Auto) Not Reportable Lymph # (Auto) Not Reportable [place] # (Auto) Not Reportable Eos # (Auto) Not Reportable Baso # (Auto) Not Reportable Abs Immat Gran (auto) Not Reportable Absolute Neuts (auto) Not Reportable Absolute Nucleated RBC Not Reportable Total Counted 100 Neutrophils % (Manual) 75 H % (46-73) Band Neutrophils % 3 % (0-6) Lymphocytes % (Manual) 9.0 L % (18-44) Monocytes % (Manual) 12 H % (3-9) Eosinophils % (Manual) 1 % (0-4) Basophils % (Manual) Metamyelocytes % Nucleated RBC % Not Reportable Abs Neuts (Manual) 16.69 H K/mm3 (1.3-6.7) Abs Lymphs (Manual) 1.92 K/mm3 (1.1-4.5) Abs Monocytes (Manual) 2.56 H K/mm3 (0.1-0.90) Absolute Eos (Manual) 0.21 K/mm3 (0.02-0.5) Abs Basophils (Manual) Platelet Estimate Increased (Adequate) Large Platelets Present Hypochromasia 1+ (NORMAL) Anisocytosis 2+ (NORMAL) Schistocytes None seen (NORMAL) ESR 3 mm/hr (0-20) Sodium 130 L mmol/L (137-145) Potassium 4.4 mmol/L (3.4-5.0) Chloride 93 L mmol/L (98-107) Carbon Dioxide 27 mmol/L (22-30) Anion Gap 10 mmol/L (8-16) BUN 21 H mg/dL (9-20) Creatinine 1.10 mg/dL (0.7-1.3) Estim Creat Clear Calc 52 ml/min Estimated GFR > 60 (59 - ) Glucose 101 mg/dL (65-110) Calcium 8.5 mg/dL (8.4-10.2)
[2022-12-28] MEDS: amLODIPine BESYLATE 5 MG TABLET PO (10:47)
[2022-12-28] MEDS: FERROUS SULFATE 325 MG TABLET DR BY MOUTH ×2 (10:48→17:02)
[2022-12-28] MEDS: TAMSULOSIN HCL 0.4 MG CAPSULE PO (10:48)
[2022-12-28] MEDS: ATORVASTATIN 20 MG TABLET PO (10:48)
[2022-12-28] MEDS: MULTIVITAMINS THERAPEUTIC TAB (*BKC) 1 TABLET PO (10:48)
[2022-12-28] MEDS: HYDROXYUREA (*CHEMO) 500 MG CAPSULE PO (10:48)
[2022-12-28] MEDS: METOPROLOL TARTRATE 12.5 MG TABLET PO ×2 (10:49→20:13)
[2022-12-28] MEDS: ASPIRIN 81 MG ENTERIC TABLET PO (10:49)
[2022-12-28] MEDS: hydroCHLOROthiazide 12.5 MG CAPSULE PO (10:49)
[2022-12-28] MEDS: PANTOPRAZOLE SODIUM IV 40 MG VIAL IV PUSH (11:57)
[2022-12-28] MEDS: BISACODYL 5 MG TABLET EC 10 MG PO ×3 (12:19→20:13)
[2022-12-28] MEDS: MAGNESIUM CITRATE 300 ML BTL 180 ML PO (14:50)
[2022-12-28] MEDS: polyethylene glycoL 3350 238 GM BOTTLE PO (18:00)
--- NOTE | 2022-12-28 18:31 | PM.IMPN ---
Progress Note: A&P Assessment and Plan (1) GI (gastrointestinal bleed): Code(s): K92.2 - Gastrointestinal hemorrhage, unspecified Status: Acute (2) History of coronary angioplasty with insertion of stent: Code(s): Z95.5 - Presence of coronary angioplasty implant and graft Status: Acute Plan 87M w/ PMH BPH, CAD s/p CABG, PAD, HTN, HLD, polycythemia vera, presented with lethargy x 2 weeks w/ black tarry stools for 2-3 months. EGD demonstrating reflux esophagitis. to take protonix daily and f/u with GI. colonoscopy tomorrow. counseled on avoiding NSAIDs although will have to continue baby aspirin leukocytosis - improving, no evidence of infection. CTM thrombocytosis - heme onc consulted. appreciate recommendations Full Code More than 25 minutes spent on chart review, patient interaction and assessment and plan. Subjective Date/time seen: 12/28/22 18:31 Interval history: NAOE. pt denies any complaints. he did have dark stool again today. he denies alcoholism or NSAID use other than aspirin Review of Systems Cardiovascular: Cardiovascular: Denies chest pain and Denies dyspnea Respiratory: Respiratory: Denies cough and Denies dyspnea Gastrointestinal: Gastrointestinal: Denies abdominal pain and Denies vomiting Exam Const: General: no acute distress, alert and Physically active Resp: Effort & Inspection: normal respiratory effort Auscultation: clear to auscultation bilaterally Cardio: Rate: regular rate Rhythm: regular rhythm Heart sounds: S1 normal heart sound present and S2 normal heart sound present GI: Inspection: non-distended GI Palp: No abdominal tenderness Auscultation: normal bowel sounds Extrem: Right upper extremity: no edema Objective Data Vital Signs Vital Signs: Vital Signs - 24 hr 12/27/22 18:32 12/27/22 18:45 12/27/22 19:00 Temperature Pulse Rate 86 87 90 Respiratory Rate 23 H 18 26 H Blood Pressure 155/78 H Pulse Oximetry 99 99 Oxygen Delivery 12/27/22 19:21 12/27/22 20:35 12/27/22 21:30 Temperature 97.4 F L Pulse Rate 85 105 H 87 Respiratory Rate 18 15 16 Blood Pressure 166/73 H 149/71 H Pulse Oximetry 100 100 99 Oxygen Delivery 12/27/22 21:52 12/27/22 23:57 12/28/22 04:57 Temperature 97.8 F Pulse Rate 84 78 Respiratory Rate 17 Blood Pressure 138/73 Pulse Oximetry 97 Oxygen Delivery Room Air 12/28/22 08:32 12/28/22 09:48 12/28/22 09:58 Temperature 97.0 F L Pulse Rate 86 84 80 Respiratory Rate 16 22 H 17 Blood Pressure 154/60 H 91/54 L 122/70 Pulse Oximetry 99 98 97 Oxygen Delivery Room Air Room Air Room Air 12/28/22 10:08 12/28/22 08:00 12/28/22 10:49 Temperature Pulse Rate 84 84 Respiratory Rate 18 Blood Pressure 148/79 H Pulse Oximetry 99 Oxygen Delivery Room Air Room Air 12/28/22 14:00 Temperature 98.0 F Pulse Rate 92 Respiratory Rate 20 Blood Pressure 135/63 Pulse Oximetry 97 Oxygen Delivery Intake/Output Intake/Output: Intake & Output 12/25/22 12/26/22 12/27/22 12/28/22 23:59 23:59 23:59 23:59 Intake Total 50 1730 Output Total 0 Balance 50 1730 Meds/Results Medications: Active Medications Generic Name Dose Route Start Last Admin Trade Name Freq PRN Reason Stop Dose Admin Acetaminophen 325 mg 12/27/22 23:37 Acetaminophen 325 Mg Tablet PO Q4H PRN Mild Pain (1-3) or Fever Amlodipine Besylate 5 mg 12/28/22 09:00 12/28/22 10:47 Amlodipine Besylate 5 Mg Tablet PO 5 mg DAILY REJI Administration Aspirin 81 mg 12/28/22 09:00 12/28/22 10:49 Aspirin 81 Mg Enteric Tablet PO 81 mg DAILY REJI Administration Atorvastatin Calcium 20 mg 12/28/22 09:00 12/28/22 10:48 Atorvastatin 20 Mg Tablet PO 20 mg DAILY REJI Administration Bisacodyl 10 mg 12/28/22 12:00 12/28/22 14:51 Bisacodyl 5 Mg Tablet Ec PO 12/28/22 21:01 10 mg 1200,1500,2100 REJI Administration Ferrous Sulfate 325 mg 12/28/22 09:00
[2022-12-29] VITALS (7 sets, daily range): BP systolic 95–156; BP diastolic 54–78; PULSE 84–96; RESP 13–24; TEMP 36.3–37.2; O2SAT 98–100
[2022-12-29 06:54] LABS: Hematocrit 43.2 % (42.0-52.0); Hemoglobin 12.4 g/dL (14.0-18.0); Mean Corpuscular HGB Conc 28.7 g/dl (32-36); Mean Platelet Volume 9.3 fl (7.4-10.4); Platelet Count Result 594 k/mm3 (150-375); Red Cell Distribution Width 16.2 % (11.5-14.5)
[2022-12-29 07:06] LABS: Anion Gap 7 mmol/L (8-16); Blood Urea Nitrogen 14 mg/dL (9-20); Calcium 8.4 mg/dL (8.4-10.2); Carbon Dioxide 29 mmol/L (22-30); Chloride 96 mmol/L (98-107); Estimated CRCL calculation 51 ml/min; Estimated Glomerular Filt Rate > 60; Glucose 90 mg/dL (65-110); Magnesium 1.8 mg/dL (1.6-2.3); Potassium 3.7 mmol/L (3.4-5.0); Sodium 132 mmol/L (137-145)
[2022-12-29 07:23] LABS: Procalcitonin 0.1 ng/mL
--- NOTE | 2022-12-29 07:59 | WPDANESPN ---
Anes - Prog Note Post-Op Date/Time: 12/29/22 07:59 Cardiovascular status: normal Respiratory status: normal Airway patency: baseline Mental status: baseline Post-Op hydration status: normal Vital Signs: Last Vital Signs Temp 37.0 C 12/29/22 05:21 Pulse 89 12/29/22 05:21 Resp 13 12/29/22 05:21 BP 156/78 H 12/29/22 05:21 Pulse Ox 98 12/29/22 05:21 O2 Del Method Room Air 12/28/22 10:08 Pain Score (VAS): no complaints I/O: Intake & Output 12/28/22 12/28/22 12/29/22 15:59 23:59 07:59 Intake Total 490 1240 1240 Balance 490 1240 1240 Laboratory Tests 12/29/22 06:36 12/29/22 06:36 12/29/22 06:36 WBC 14.0 H RBC 5.40 Hgb 12.4 L Hct 43.2 MCV 80.0 MCH 23.0 L MCHC 28.7 L RDW 16.2 H Plt Count 594 H MPV 9.3 Sodium 132 L Potassium 3.7 Chloride 96 L Carbon Dioxide 29 Anion Gap 7 L BUN 14 D Creatinine 1.10 Estim Creat Clear Calc 51 Estimated GFR > 60 Glucose 90 Calcium 8.4 Magnesium 1.8 Procalcitonin 0.1 Microbiology 12/27/22 18:31 Blood Blood Culture - Preliminary 12/27/22 18:22 Blood Blood Culture - Preliminary Post-procedural complaints: none Patient Feedback: Patient satisfied with anesthetic care.
[2022-12-29] MEDS: SODIUM CHLORIDE 0.9% IV 1,000 ML 100 ML IV CONT (08:05)
[2022-12-29] MEDS: HYDROXYUREA (*CHEMO) 500 MG CAPSULE PO (08:08)
[2022-12-29] MEDS: MULTIVITAMINS THERAPEUTIC TAB (*BKC) 1 TABLET PO (08:08)
[2022-12-29] MEDS: amLODIPine BESYLATE 5 MG TABLET PO (08:08)
[2022-12-29] MEDS: METOPROLOL TARTRATE 12.5 MG TABLET PO (08:09)
[2022-12-29] MEDS: hydroCHLOROthiazide 12.5 MG CAPSULE PO (08:12)
[2022-12-29] MEDS: FERROUS SULFATE 325 MG TABLET DR BY MOUTH ×2 (08:12→16:39)
[2022-12-29] MEDS: ASPIRIN 81 MG ENTERIC TABLET PO (08:12)
[2022-12-29] MEDS: TAMSULOSIN HCL 0.4 MG CAPSULE PO (08:12)
[2022-12-29] MEDS: ATORVASTATIN 20 MG TABLET PO (08:12)
[2022-12-29] MEDS: PANTOPRAZOLE SODIUM IV 40 MG VIAL IV PUSH (08:14)
--- NOTE | 2022-12-29 13:57 | PC.NURSE ---
To GI Lab per [ ], IV [ ]. Report given to [ ].
--- NOTE | 2022-12-29 14:05 | WPDANESEPPF ---
Anes - Initial Pre Proc Eval Procedure: D Operation Date: 12/29/22 15:30 Proposed Procedures p Colonoscopy - Vicente Caro MD Date/Time: 12/29/22 14:05 Surgeon: Cameron Jamil MD Pre Op Diagnosis: Leukocytosis, Upper GI Bleed Patient Data Age: 87 Gender: M Height: 1.91 m Weight: 82.2 kg Last Vital Signs Temp 37.0 C 12/29/22 05:21 Pulse 91 12/29/22 08:09 Resp 13 12/29/22 05:21 BP 156/78 H 12/29/22 05:21 Pulse Ox 98 12/29/22 05:21 O2 Del Method Room Air 12/29/22 08:00 Allergies Allergy/AdvReac Type Severity Reaction Status Date / Time No Known Allergies Allergy Verified 12/28/22 08:29 Home Medications Medication Instructions Recorded Confirmed Type aspirin 81 mg tablet,delayed 81 mg PO DAILY 04/03/19 12/27/22 History release atorvastatin 20 mg tablet 20 mg PO DAILY 04/03/19 12/27/22 History multivitamin (One-A-Day Essential 1 tablet PO DAILY 04/03/19 12/27/22 History tablet) allopurinol 300 mg tablet 300 mg PO DAILY 03/27/22 12/27/22 History hydrochlorothiazide 12.5 mg tablet 12.5 mg PO DAILY #90 tabs 03/27/22 12/27/22 Rx hydroxyurea 500 mg capsule 500 mg PO DAILY 03/30/22 12/27/22 History metoprolol tartrate 25 mg tablet 12.5 mg PO BID #90 tabs 12/05/22 12/27/22 Rx tamsulosin 0.4 mg capsule See Rx Instructions .Route 12/11/22 12/27/22 Rx .COMPLEX #90 caps Dulcolax (magnesium hydroxide) 1,200 mg PO PRN PRN Constipation 12/27/22 12/27/22 History amlodipine 5 mg tablet 5 mg PO DAILY 12/27/22 12/27/22 History ferrous sulfate 325 mg PO BID 12/27/22 12/27/22 History Laboratory Tests 12/29/22 06:36 WBC 14.0 H K/mm3 (4.5-10.0) RBC 5.40 M/mm3 (4.6-6.20) Hgb 12.4 L g/dL (14.0-18.0) Hct 43.2 % (42.0-52.0) MCV 80.0 fl (80-100) MCH 23.0 L pg (26-34) MCHC 28.7 L g/dl (32-36) RDW 16.2 H % (11.5-14.5) Plt Count 594 H k/mm3 (150-375) MPV 9.3 fl (7.4-10.4) Sodium 132 L mmol/L (137-145) Potassium 3.7 mmol/L (3.4-5.0) Chloride 96 L mmol/L (98-107) Carbon Dioxide 29 mmol/L (22-30) Anion Gap 7 L mmol/L (8-16) BUN 14 D mg/dL (9-20) Creatinine 1.10 mg/dL (0.7-1.3) Estim Creat Clear Calc 51 ml/min Estimated GFR > 60 (59 - ) Glucose 90 mg/dL (65-110) Calcium 8.4 mg/dL (8.4-10.2) Magnesium 1.8 mg/dL (1.6-2.3) Procalcitonin 0.1 ng/mL Patient hx anesthesia problems: none Family hx anesthesia problems: none Results Review: All pre-operative results and documents have been reviewed as part of the pre-operative evaluation. [facility] Past Medical History Medical History BPH (benign prostatic hyperplasia) Greater trochanter fracture History of coronary artery disease History of hyperlipidemia History of hypertension Polycythemia vera Skin cancer Surgical History Surgical History History of coronary angioplasty with insertion of stent S/P CABG (coronary artery bypass graft) Status post insertion of iliac artery stent Family History Family History Other Heart disease Social History Social History Smoking packs per day: 1.5 Smoking cigarettes per day: 30.0 Years smoked: 30 Smoking pack-years: 45.00 Smoking status: Former smoker Tobacco type: cigarettes Second hand tobacco smoke exposure: No Smoking end date: 04/16/84 Alcohol intake: never Substance use: never Substance use type: does not use Lack of Transportation: No Lack of Food: Never True Current Housing: I Have Housing Concerned About Future Housing: No Difficulty Paying Gas/Electric Bills: No Difficulty Paying for Meds: No Currently Unemployed: No Education: High School Diploma/GED Difficulty w/ Childcare or Family Care:
[2022-12-29] MEDS: LACTATED RINGERS 1,000 ML 150 ML IV CONT (14:07)
--- NOTE | 2022-12-29 18:34 | PM.DS ---
DS: Admitting Diagnosis Discharge Date 12/29/22 Admitting Diagnosis tarry stools DS: Discharge Diagnosis Discharge Diagnosis (1) Reflux esophagitis: Code(s): K21.00 - Gastro-esophageal reflux disease with esophagitis, without bleeding Status: Acute DS: Summary Hospital Course Hospital Course: 87M w/ PMH BPH, CAD s/p CABG, PAD, HTN, HLD, polycythemia vera, presented with lethargy and black tarry stools for 2 weeks. Pt underwent EGD demonstrating reflux esophagitis and a colonoscopy revealing internal hemorrhoids and diverticulosis. His HB remained stable throughout his course. He was started on protonix and will follow up with his PCP and then GI. counseled on avoiding ingesting substances which exacerbate esophagitis. We agreed he would continue to take baby aspirin after weighing the risks of bleeding and PUD vs already defined CAD. More than 30 minutes spent on discharge planning and documentation. Time Spent with Patient Time attestation: Total time spent providing and/or coordinating discharge services: Exam Const: General: cooperative and no acute distress Resp: Effort & Inspection: normal respiratory effort Auscultation: clear to auscultation bilaterally Cardio: Rate: regular rate Rhythm: regular rhythm Heart sounds: S1 normal heart sound present and S2 normal heart sound present GI: GI Palp: No abdominal tenderness Auscultation: normal bowel sounds DS: Data Data Completed and Pending Completed studies during hospitalization: Pending at discharge 12/28/22 09:42 Surgical [PTH] Routine Labs on day of discharge: Labs from last 24 hours 12/29/22 06:36 WBC 14.0 H RBC 5.40 Hgb 12.4 L Hct 43.2 MCV 80.0 MCH 23.0 L MCHC 28.7 L RDW 16.2 H Plt Count 594 H MPV 9.3 Sodium 132 L Potassium 3.7 Chloride 96 L Carbon Dioxide 29 Anion Gap 7 L BUN 14 D Creatinine 1.10 Estim Creat Clear Calc 51 Estimated GFR > 60 Glucose 90 Calcium 8.4 Magnesium 1.8 Procalcitonin 0.1 Preliminary micro results at discharge 12/27/22 18:31 Blood Culture - Preliminary Blood 12/27/22 18:22 Blood Culture - Preliminary Blood Discharge Plan Discharge Attending physician on discharge: Radha Suarez Consulting providers: Vicente Caro; Glenn Reynolds Discharging Clinician: Radha Suarez Patient Disposition: Home, Self-Care Activity: may shower Diet: heart healthy Stand Alone Forms: General Discharge Information Follow-up/Referrals: Osmel Agudelo MD [Primary Care Provider] - 2 Weeks Vicente Caro MD [Physician] - 6 Weeks Discharge Medications: New pantoprazole [Protonix] 40 mg tablet,delayed release (DR/EC) 40 mg PO QAM Qty: 60 1RF Continued hydroxyurea 500 mg Capsule 500 mg PO DAILY atorvastatin 20 mg tablet 20 mg PO DAILY aspirin 81 mg tablet,delayed release (DR/EC) 81 mg PO DAILY multivitamin [One-A-Day Essential] Tablet 1 tablet PO DAILY allopurinol 300 mg tablet 300 mg PO DAILY hydrochlorothiazide 12.5 mg tablet 12.5 mg PO DAILY Qty: 90 3RF metoprolol tartrate 25 mg tablet 12.5 mg PO BID Qty: 90 3RF amlodipine 5 mg tablet 5 mg PO DAILY ferrous sulfate tablet 325 mg PO BID Dulcolax (magnesium hydroxide) 1,200 mg PO PRN PRN (Reason: Constipation) tamsulosin 0.4 mg capsule See Rx Instructions .ROUTE .COMPLEX Qty: 90 3RF Dose Instruction: Take 1 capsule by mouth once daily Rx Instructions: Take 1 capsule by mouth once daily Date of admission: 12/27/22 18:09 Primary Care Provider: Osmel Agudelo Admitting Provider: Kishore Jamil Attending physician on admission: Kishore Jamil Condition: Stable
--- NOTE | 2022-12-29 18:46 | PDONCCN ---
HPI - Date of Consult Date/Time: 12/29/22 18:46 Requesting Physician: Cameron Jamil MD Primary Care Provider: Osmel Agudelo MD - Consult Narrative Reason for consult: Essential thrombocythemia and polycythemia vera Narrative: Osvaldo Santiago is a 87 year old male with diagnosis of polycythemia and essential thrombocythemia with JAK2 mutation positive currently on hydroxyurea every other day basis. He was last seen in the office on November 20 and due to the dark stool suggested to have GI consultation. He was taking oral iron twice daily. He was complaining of dark stool. Patient came into the hospital with generalized tiredness and fatigue and lethargy along with dark stool. Labs showed platelet count was 130545 now down dropped to 594,000. Colonoscopy done showed internal hemorrhoids. EGD showed reflux esophagitis. He clinically is stable and ready to be discharged. Review of Systems - Review of Systems All systems reviewed & are unremarkable except as noted in [facility] and [facility] Medical History: Medical History (Last Updated 12/29/22 @ 18:34 by Radha Suarez MD) BPH (benign prostatic hyperplasia) Greater trochanter fracture History of coronary artery disease History of hyperlipidemia History of hypertension Polycythemia vera Reflux esophagitis Skin cancer Surgical History: Surgical History (Last Reviewed 12/28/22 @ 08:52 by Vicente Caro MD) History of coronary angioplasty with insertion of stent S/P CABG (coronary artery bypass graft) Status post insertion of iliac artery stent Family History: Family History (Last Reviewed 12/28/22 @ 08:52 by Vicnete Caro MD) Other Heart disease - Social History Social History: Social History (Last Reviewed 12/28/22 @ 08:52 by Vicente Caro MD) Gender Identity: Gender identity (if verbalized by the patient): Male Alcohol Use: Alcohol intake: never Substance Use: Substance use: never Substance use type: does not use Others: Spiritual care concerns: No Living Arrangements: Living arrangements: with family Oppucation/Education: Occupation/Education: retired Smoking Status: Smoking status: Former smoker Tobacco type: cigarettes Second hand tobacco smoke exposure: No Smoking end date: 04/16/84 Smoking Pack-years: Smoking packs per day: 1.5 Smoking cigarettes per day: 30.0 Years smoked: 30 Smoking pack-years: 45.00 Social Determinants of Health: Has the Lack of Transportation Kept You From Medical Appointments or From Getting Medications?: No Within the Past 12 Months, Were You Worried Whether Your Food Would Run Out Before You Got Money to Buy More?: Never True What is Your Housing Situation Today?: I Have Housing Are You Worried That in the Next 2 Months, You May Not Have Your Own Housing to Live In?: No Do You Have Trouble Paying Your Heating Or Electricity Bill?: No Do You Have Trouble Paying For Medicines?: No Are You Currently Unemployed and Looking for Work?: No Highest Level of Education Completed: High School Diploma/GED Do You Have Trouble With Childcare or the Care of a Family Member?: No Exam - Vital Signs Vital Signs - 24 hr 12/28/22 20:13 12/28/22 21:21 12/29/22 05:21 Temperature 37.1 C 37.0 C Pulse Rate 92 87 89 Respiratory Rate 14 13 Blood Pressure 144/70 H 156/78 H Pulse Oximetry 98 98 Oxygen Delivery 12/29/22 08:09 12/29/22 08:00 12/29/22 14:04 Temperature 36.3 C L Pulse Rate 91 96 Respiratory Rate 18 Blood Pressure 154/69 H Pulse Oximetry 100 Oxygen Delivery Room Air Room Air 12/29/22 14:00 12/29/22 15:55 12/29/22 16:03 Temperature 37.2 C Pulse Rate 91 84 93 Respiratory Rate 18 17 22 H Blood Pressure 142/62 H 95/54 L 109/66 Pulse Oximetry 98 100 100 Oxygen Delivery Room Air Room Air 12/29/22 16:10 Temperature Pulse Rate 92 Respiratory Rate 24
== END 2022-12-29 18:55 | disposition home or self-care (01) ==
LOC: ANHED 19:41 → ANH3MEDSUR 12-28 08:00
PROVIDERS: Internal Medicine Gastroenterology; Student in an Organized Health Care Education/Training Program; Admitting Provider Internal Medicine; Emergency Provider Emergency Medicine; PCP Family Medicine; Visit Provider General Practice
PROC: 0DJ08ZZ Inspection of Upper Intestinal Tract, Via Natural or Artificial Opening Endoscopic (ICD-10-PCS; CPT 43235; principal; 2022-12-28 14:30)
PROC: 0DJD8ZZ Inspection of Lower Intestinal Tract, Via Natural or Artificial Opening Endoscopic (ICD-10-PCS; CPT 45378; principal; 2022-12-29 15:30)
DX: K21.00 Gastro-esophageal reflux disease with esophagitis, without bleeding (principal); K64.8 Other hemorrhoids; K57.30 Diverticulosis of large intestine without perforation or abscess without bleeding; D45 Polycythemia vera; D75.839 Thrombocytosis, unspecified; D72.829 Elevated white blood cell count, unspecified; K92.1 Melena; Z20.822 Contact with and (suspected) exposure to COVID-19; K59.00 Constipation, unspecified; N40.0 Benign prostatic hyperplasia without lower urinary tract symptoms; I25.10 Atherosclerotic heart disease of native coronary artery without angina pectoris; Z95.1 Presence of aortocoronary bypass graft; E78.5 Hyperlipidemia, unspecified; I10 Essential (primary) hypertension; Z95.820 Peripheral vascular angioplasty status with implants and grafts; Z85.828 Personal history of other malignant neoplasm of skin; Z87.891 Personal history of nicotine dependence; Z79.82 Long term (current) use of aspirin; Z79.899 Other long term (current) drug therapy; Z82.49 Family history of ischemic heart disease and other diseases of the circulatory system
CPT/HCPCS: 43239; 45378; 36415; 71045; 80048; 80053; 81001; 83735; 84145; 85025; 85027; 85652; 86140; 87040; 87081; 87637; 88305; 96365; 96375; 99285; A9270; C9113; G0378; J1170; J2405; J2543; J2704; J7030; J7120

== ENCOUNTER 2022-12-30 12:42 | Outpatient (CLI) | payer MEDICARE, SELFPAY ==
--- NOTE | ~2022-12-30 | CT_ITS ---
EXAMINATION: CT knee LT wo con DATE: 12/30/2022 13:25 INDICATION: Left knee injury TECHNIQUE: High resolution computed tomography (CT) of the left knee was performed without intravenou s contrast. Additional sagittal and coronal reconstructions were performed. Automated exposure contro l and iterative reconstruction technique were employed. The dose-length product was 607.57 mGy-cm. COMPARISON: Left knee radiographs dated 12/11/2022 FINDINGS: Bone alignment is normal. No acute fracture. There is cortical irregularity with focal mild concavity to the otherwise continuous appearing articular cortex along the lateral margin of the anterior weig htbearing medial femoral condyle. There is underlying subarticular cystic change with no evident line ar sclerosis to suggest an acute impaction fracture this could represent either sequela of old fractu re or more likely a chronically collapsed osteochondral lesion. Chondrocalcinosis at both the medial and lateral menisci. There is at least mild tricompartmental osteoarthritis with small marginal osteo phytes in all 3 compartments and at least mild joint space during the medial compartment although janneth nt space narrowing can be underestimated on nonweightbearing imaging. Mild cortical irregularity and subarticular cystic change at the patellar apical ridge and medial facet and at the trochlear groove and immediately adjacent medial and lateral trochlea consistent with likely overlying high-grade rajendra dromalacia. Additional tiny subchondral osteophytes suggesting overlying high-grade chondral malacia along the posterior margin of the lateral tibial plateau. Several small enthesopathic ossicles along the lateral side of the patellar insertion of the patellar tendon. Moderate-sized left knee joint eff usion without layering lipohemarthrosis but with slightly greater than simple fluid attenuation sugge sting an exudative effusion. Osteochondral body within a small Connors's cyst. Scattered atheroscleroti c calcifications. IMPRESSION: 1. Chronic appearing shallow concavity to the lateral margin of the anterior weightbearing medial fem oral condyle most likely old collapsed osteochondral lesion with differential including chronic impac tion fracture. No acute fracture. 2. Chondrocalcinosis and at least mild tricompartmental osteoarthritis with regions of likely high-gr neelam chondromalacia in all 3 compartments. 3. Moderate-sized left knee joint effusion with slightly greater than simple fluid attenuation which could represent a small amount of blood related to prior trauma other exudative effusion. Reviewed, dictated and finalized at location A. IMPRESSION: 1. Chronic appearing shallow concavity to the lateral margin of the anterior we ightbearing medial femoral condyle most likely old collapsed osteochondral lesi on with differential including chronic impaction fracture. No acute fracture. 2. Chondrocalcinosis and at least mild tricompartmental osteoarthritis with reg ions of likely high-grade chondromalacia in all 3 compartments. 3. Moderate-sized left knee joint effusion with slightly greater than simple fl uid attenuation which could represent a small amount of blood related to prior trauma other exudative effusion.
== END 2022-12-30 12:43 | disposition home or self-care (01) ==
PROVIDERS: PCP Family Medicine; Visit Provider Orthopaedic Surgery
DX: S89.92XA Unspecified injury of left lower leg, initial encounter (principal); M11.262 Other chondrocalcinosis, left knee; M94.262 Chondromalacia, left knee; M17.12 Unilateral primary osteoarthritis, left knee; M25.462 Effusion, left knee
CPT/HCPCS: 73700

== ENCOUNTER 2023-01-09 13:29 | Outpatient (CLI) | payer MEDICARE, SELFPAY ==
--- NOTE | ~2023-01-09 | US_ITS ---
EXAMINATION: US soft tissue pelvic DATE: 01/09/2023 14:57 INDICATION: Palpable lump at the midline lower pelvis. TECHNIQUE: Multiple grayscale and Doppler ultrasound images of the suprapubic region of concern at th e anterior pelvis were obtained. COMPARISON: None FINDINGS: There is a 2.8 x 2.0 x 1.6 cm heterogeneously very hypoechoic lesion with well-defined smooth periphe ral margins. There is prominent posterior acoustic enhancement and no evident internal vascular flow on color Doppler suggesting a complex cystic lesion position epidermoid cyst. No significant surround ing hyperemia. The lesion extends to <1 mm of the skin surface. No other abnormal masses or fluid col lections identified. IMPRESSION: 1. 2.8 cm hypoechoic lesion in the superficial subcutaneous tissues at the suprapubic region of narendra rn. Ultrasound appearance and lack of internal vascular flow on color Doppler to suggest neoplasm wou ld favor a complex cystic lesion such as an epidermoid cyst. Reviewed, dictated and finalized at location A. IMPRESSION: 1. 2.8 cm hypoechoic lesion in the superficial subcutaneous tissues at the supr apubic region of concern. Ultrasound appearance and lack of internal vascular f low on color Doppler to suggest neoplasm would favor a complex cystic lesion chase ch as an epidermoid cyst.
== END 2023-01-09 13:30 | disposition home or self-care (01) ==
PROVIDERS: PCP Family Medicine; Visit Provider Internal Medicine Hematology & Oncology
DX: L72.9 Follicular cyst of the skin and subcutaneous tissue, unspecified (principal)
CPT/HCPCS: 76857

== ENCOUNTER 2023-02-07 09:23 | Outpatient (CLI) | payer MEDICARE, SELFPAY ==
[2023-02-07 09:40] LABS: Hematocrit 49.6 % (42.0-52.0); Hemoglobin 14.1 g/dL (14.0-18.0); Mean Corpuscular HGB Conc 28.4 g/dl (32-36); Mean Corpuscular Hemoglobin 22.1 pg (26-34); Mean Corpuscular Volume 77.9 fl (80-100); Mean Platelet Volume 9.1 fl (7.4-10.4); Platelet Count Result 607 k/mm3 (150-375); Red Blood Count 6.37 M/mm3 (4.6-6.20); Red Cell Distribution Width 19.1 % (11.5-14.5); White Blood Count 14.2 K/mm3 (4.5-10.0)
[2023-02-07 10:02] LABS: Atypical Lymphocytes Present; Band Neutrophils Percent 2 % (0-6); Eosinophils Absolute Manual 0.28 K/mm3 (0.02-0.5); Eosinophils Percent Manual 2 % (0-4); Hypochromasia 1+ (NORMAL); Lymphocytes Absolute Manual 2.27 K/mm3 (1.1-4.5); Monocytes Absolute Manual 1.27 K/mm3 (0.1-0.90); Monocytes Percent Manual 9 % (3-9); Neutrophils Absolute Manual 10.36 K/mm3 (1.3-6.7); Neutrophils Percent Manual 71 % (46-73); Platelet Estimate Increased (Adequate); Schistocytes None Seen (NORMAL); Total Cells Counted 100
[2023-02-07 12:11] LABS: Iron 21 ug/dL (49-181)
[2023-02-07 12:15] LABS: Anion Gap 5 mmol/L (8-16); Blood Urea Nitrogen 12 mg/dL (9-20); Calcium 8.9 mg/dL (8.4-10.2); Carbon Dioxide 30 mmol/L (22-30); Chloride 97 mmol/L (98-107); Estimated Glomerular Filt Rate > 60; Glucose 103 mg/dL (65-110); Potassium 4.4 mmol/L (3.4-5.0); Sodium 132 mmol/L (137-145)
[2023-02-07 12:27] LABS: Percent Iron Saturation 7 % (20-50)
[2023-02-07 13:06] LABS: Vitamin B12 > 1000.0 pg/mL (239-931)
== END 2023-02-07 09:24 | disposition home or self-care (01) ==
LOC: ANHLAB 09:25
PROVIDERS: PCP Family Medicine; Visit Provider Internal Medicine Hematology & Oncology
DX: D64.9 Anemia, unspecified (principal)
CPT/HCPCS: 36415; 80048; 82607; 82728; 83540; 83550; 85025

== ENCOUNTER 2023-04-19 13:58 | Outpatient (CLI) | payer MEDICARE, SELFPAY ==
--- NOTE | ~2023-04-19 | XR_ITS ---
EXAMINATION: XR abdomen/kub 1V DATE: 04/19/2023 14:10 INDICATION: Constipation. TECHNIQUE: A supine view of the abdomen on 2 radiographs was obtained. COMPARISON: Abdomen radiographs 05/04/2022 FINDINGS: There are no dilated loops of bowel. There is a moderate volume of stool in the colon. Medi an sternotomy wires and mediastinal surgical clips are seen, likely from prior coronary artery bypass grafting. There is a stent graft in abdominal aorta and the common iliac arteries. IMPRESSION: 1. Nonobstructive bowel gas pattern. Reviewed, dictated and finalized at location E. [employer]
== END 2023-04-19 13:59 | disposition home or self-care (01) ==
PROVIDERS: PCP Family Medicine; Visit Provider Family Medicine
DX: K59.00 Constipation, unspecified (principal)
CPT/HCPCS: 74018

== ENCOUNTER 2023-07-10 13:01 | Outpatient (CLI) | payer MEDICARE, SELFPAY ==
[2023-07-10 13:16] LABS: Basophils Absolute Auto 0.2 K/mm3 (0.0-0.1); Eosinophils Absolute Auto 0.2 K/mm3 (0-0.3); Hematocrit 48.7 % (42.0-52.0); Hemoglobin 14.8 g/dL (14.0-18.0); Immature Granulocyte Absolute 0.53 K/mm3 (0.00-0.031); Immature Granulocyte Percent A 3.4 % (0-0.5); Lymphocytes Absolute Auto 2.67 K/mm3 (0.9-3.2); Lymphocytes Percent Auto 16.9 % (18.3-44.2); Mean Corpuscular HGB Conc 30.4 g/dl (32-36); Mean Corpuscular Volume 85.4 fl (80-100); Mean Platelet Volume 9.8 fl (7.4-10.4); Monocytes Absolute Auto 1.5 K/mm3 (0.1-0.6); Monocytes Percent Auto 9.5 % (2.6-8.5); Neutrophils Absolute Auto 10.8 K/mm3 (1.3-6.7); Neutrophils Percent Auto 68.2 % (45.5-73.1); Platelet Count Result 470 k/mm3 (150-375); Red Cell Distribution Width 14.9 % (11.5-14.5); White Blood Count 15.8 K/mm3 (4.5-10.0)
[2023-07-10 13:20] LABS: Blood Urea Nitrogen 19 mg/dL (8-26); Carbon Dioxide 30 mmol/L (22-30); Chloride 94 mmol/L (98-109); Estimated Glomerular Filt Rate 20; Glucose 105 mg/dL (70-105); Ionized Calcium (POC) 1.16 mmol/L (1.11-1.31); Potassium 3.8 mmol/L (3.5-4.9); Sodium 135 mmol/L (138-146)
[2023-07-10 13:22] LABS: Atypical Lymphocytes Present; Platelet Estimate Increased (Adequate); Schistocytes None Seen
[2023-07-10 14:31] LABS: Alanine Aminotransferase 18 U/L (6-50); Albumin Level 4.1 g/dL (3.5-5.1); Alkaline Phosphatase 76 U/L (38-126); Anion Gap 9 mmol/L (4-12); Aspartate Amino Transferase 31 U/L (17-59); Bilirubin,Total 0.7 mg/dL (0.2-1.3); Blood Urea Nitrogen 19 mg/dL (9-20); Calcium 8.8 mg/dL (8.4-10.2); Carbon Dioxide 28 mmol/L (22-30); Chloride 96 mmol/L (98-107); Estimated Glomerular Filt Rate 52; Glucose 93 mg/dL (65-110); Potassium 3.9 mmol/L (3.4-5.0); Sodium 133 mmol/L (137-145)
== END 2023-07-10 13:02 | disposition home or self-care (01) ==
LOC: ANHLAB 13:03
PROVIDERS: PCP Family Medicine; Visit Provider Internal Medicine Hematology & Oncology
DX: D64.9 Anemia, unspecified (principal)
CPT/HCPCS: 36415; 80047; 80053; 85025

== ENCOUNTER 2023-07-25 15:49 | Outpatient (CLI) | payer MEDICARE, SELFPAY ==
[2023-07-25 16:24] LABS: Alanine Aminotransferase 19 U/L (6-50); Albumin Level 4.4 g/dL (3.5-5.1); Alkaline Phosphatase 89 U/L (38-126); Anion Gap 7 mmol/L (4-12); Aspartate Amino Transferase 36 U/L (17-59); Bilirubin,Total 0.7 mg/dL (0.2-1.3); Blood Urea Nitrogen 21 mg/dL (9-20); Calcium 9.1 mg/dL (8.4-10.2); Carbon Dioxide 29 mmol/L (22-30); Chloride 96 mmol/L (98-107); Estimated Glomerular Filt Rate 52; Glucose 107 mg/dL (65-110); Potassium 4.2 mmol/L (3.4-5.0); Sodium 132 mmol/L (137-145)
== END 2023-07-25 15:50 | disposition home or self-care (01) ==
LOC: ANHIMG 15:50 → ANHLAB 15:50
PROVIDERS: PCP Family Medicine; Visit Provider Family Medicine
DX: R79.89 Other specified abnormal findings of blood chemistry (principal); I11.9 Hypertensive heart disease without heart failure
CPT/HCPCS: 36415; 80053

== ENCOUNTER 2023-10-01 12:15 | Outpatient (CLI) | payer MEDICARE, SELFPAY ==
[2023-10-01 12:36] LABS: Hematocrit 46.5 % (42.0-52.0); Hemoglobin 13.9 g/dL (14.0-18.0); Mean Corpuscular HGB Conc 29.9 g/dl (32-36); Mean Corpuscular Hemoglobin 24.5 pg (26-34); Mean Platelet Volume 9.3 fl (7.4-10.4); Platelet Count Result 371 k/mm3 (150-375); Red Blood Count 5.67 M/mm3 (4.6-6.20); Red Cell Distribution Width 15.4 % (11.5-14.5); White Blood Count 17.2 K/mm3 (4.5-10.0)
[2023-10-01 13:21] LABS: Iron 24 ug/dL (49-181)
[2023-10-01 13:31] LABS: Percent Iron Saturation 8 % (20-50)
== END 2023-10-01 12:16 | disposition home or self-care (01) ==
PROVIDERS: PCP Family Medicine; Visit Provider Internal Medicine Hematology & Oncology
DX: D64.9 Anemia, unspecified (principal)
CPT/HCPCS: 36415; 82728; 83540; 83550; 85027

== ENCOUNTER 2023-11-27 09:00 | Outpatient (CLI) | payer MEDICARE, SELFPAY ==
[2023-11-27 09:18] LABS: Hematocrit 47.7 % (42.0-52.0); Hemoglobin 13.9 g/dL (14.0-18.0); Mean Corpuscular HGB Conc 29.1 g/dl (32-36); Mean Corpuscular Hemoglobin 25.1 pg (26-34); Mean Corpuscular Volume 86.3 fl (80-100); Mean Platelet Volume 9.6 fl (7.4-10.4); Platelet Count Result 470 k/mm3 (150-375); Red Blood Count 5.53 M/mm3 (4.6-6.20); Red Cell Distribution Width 17.6 % (11.5-14.5); White Blood Count 21.8 K/mm3 (4.5-10.0)
[2023-11-27 10:27] LABS: Iron 85 ug/dL (49-181)
[2023-11-27 10:37] LABS: Percent Iron Saturation 26 % (20-50)
== END 2023-11-27 09:01 | disposition home or self-care (01) ==
LOC: ANHLAB 09:01
PROVIDERS: PCP Family Medicine; Visit Provider Internal Medicine Hematology & Oncology
DX: D64.9 Anemia, unspecified (principal)
CPT/HCPCS: 36415; 82728; 83540; 83550; 85027

== ENCOUNTER 2023-12-09 09:17 | Inpatient (IN) | payer MEDICARE, SELFPAY ==
[2023-12-09] VITALS (12 sets, daily range): BP systolic 86–169; BP diastolic 43–95; PULSE 85–121; RESP 16–20; TEMP 35.8–36.6; O2SAT 94–100; BMI 22.8
--- NOTE | ~2023-12-09 | XR_ITS ---
EXAMINATION: XR chest 1V DATE: 12/09/2023 11:28 INDICATION: Syncope. TECHNIQUE: A single frontal view of the chest was obtained. COMPARISON: Chest single view 12/27/2022 FINDINGS: Calcified right lung nodules and calcified right hilar lymph nodes are consistent with old granulomatous disease. There is mild scarring at the lung apices. There is mild atelectasis in the lo wer lung zones. No pleural effusion or pneumothorax. The heart size is normal. Median sternotomy wire s and mediastinal surgical clips are seen, likely from prior coronary artery bypass grafting. IMPRESSION: 1. Mild scarring at the lung apices and mild atelectasis in the lower lung zones. Reviewed, dictated and finalized at location A. IMPRESSION: 1. Mild scarring at the lung apices and mild atelectasis in the lower lung zone s.
--- NOTE | ~2023-12-09 | CT_ITS ---
EXAMINATION: CT abdomen pelvis w con DATE: 12/09/2023 11:25 INDICATION: Leukocytosis. Diarrhea. TECHNIQUE: Computed tomography (CT) of the abdomen and pelvis was performed with 100 mL Omnipaque 350 intravenous contrast. Automated exposure control and iterative reconstruction technique were employe d. The dose-length product was 762.97 mGy-cm. COMPARISON: CT abdomen and pelvis 01/28/2022 FINDINGS: The visualized portions of the lung bases demonstrate mild atelectasis and mild chronic zach g disease. A calcified right lung nodule is consistent with old granulomatous disease. No pleural eff usion. The heart size is normal. There are coronary artery calcifications. No pericardial effusion. T here are cysts in the liver measuring up to 15 mm. The gallbladder, spleen, pancreas, and adrenal gla nds are normal. There is cortical thinning of the kidneys. There are cysts in the kidneys measuring u p to 8 mm on the left. There is a 2 mm stone in left kidney. There is a 3.6 cm fusiform aneurysm of a bdominal aorta with stent graft in expected position. The prostate is mildly enlarged. There are bila teral inguinal hernias containing fat. There are no dilated loops of bowel. The appendix is normal. T here are no pathologically enlarged lymph nodes. There is no free intraperitoneal fluid. There is sev ere lumbar spondylosis. IMPRESSION: 1. 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 2. Bilateral inguinal hernias containing fat. Reviewed, dictated and finalized at location A. IMPRESSION: 1. 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 2. Bilateral inguinal hernias containing fat.
--- NOTE | ~2023-12-09 | CT_ITS ---
EXAMINATION: CT brain wo con DATE: 12/09/2023 11:25 INDICATION: Head injury. TECHNIQUE: Computed tomography (CT) of the head was performed without intravenous contrast. The mA wa s adjusted according to patient size. Iterative reconstruction technique was employed. The dose-lengt h product was 605.33 mGy-cm. COMPARISON: None FINDINGS: There is no intracranial hemorrhage, acute infarction, or abnormal intracranial mass lesion . The ventricles are normal in size. There is mild mucosal thickening in the paranasal sinuses. There is complete opacification of right frontal sinus. The mastoid air cells are normal. There are likely changes of ocular lens replacement surgeries. IMPRESSION: 1. Normal brain. Reviewed, dictated and finalized at location A. IMPRESSION: 1. Normal brain.
--- NOTE | 2023-12-09 09:26 | ECG_ITS ---
Test Date: 2023-12-09 09:42:44 Measurements Intervals [place] Rate: 90 P: 41 NH: 164 QRS: 38 QRSD: 101 T: 26 QT: 370 QTc: 454 Interpretive Statements SINUS RHYTHM INCOMPLETE RIGHT BUNDLE BRANCH BLOCK [90+ ms QRS DURATION, TERMINAL R IN V1/V2, 40+ ms S IN I/aVL/V4/V5/V6] LOW-VOLTAGE QRS ABNORMAL ECG No previous ECG available for comparison Electronically Signed On 12-11-2023 07:02:59 CDT by Fabio Stubbs M.D.
[2023-12-09 09:36] LABS: Hematocrit 38.6 % (42.0-52.0); Mean Corpuscular HGB Conc 28.5 g/dl (32-36); Mean Corpuscular Hemoglobin 25.2 pg (26-34); Mean Corpuscular Volume 88.3 fl (80-100); Mean Platelet Volume 10.2 fl (7.4-10.4); Platelet Count Result 884 k/mm3 (150-375); Red Blood Count 4.37 M/mm3 (4.6-6.20); Red Cell Distribution Width 17.3 % (11.5-14.5)
[2023-12-09 09:45] LABS: INR 1.6; Prothrombin Time 19.2 Seconds (11.1-14.7)
[2023-12-09 09:46] LABS: Alanine Aminotransferase 24 U/L (6-50); Albumin Level 3.7 g/dL (3.5-5.1); Alkaline Phosphatase 100 U/L (38-126); Anion Gap 13 mmol/L (4-12); Aspartate Amino Transferase 59 U/L (17-59); Bilirubin,Total 0.4 mg/dL (0.2-1.3); Blood Urea Nitrogen 49 mg/dL (9-20); Calcium 8.7 mg/dL (8.4-10.2); Carbon Dioxide 25 mmol/L (22-30); Chloride 96 mmol/L (98-107); Estimated Glomerular Filt Rate 41; Glucose 162 mg/dL (65-110); Partial Thromboplastin Time 39.5 Seconds (22.3-36.8); Potassium 4.3 mmol/L (3.4-5.0); Sodium 134 mmol/L (137-145)
[2023-12-09 10:05] LABS: White Blood Count 62.2 K/mm3 (4.5-10.0)
[2023-12-09 10:07] LABS: Band Neutrophils Percent 5 % (0-6); Lymphocytes Absolute Manual 1.86 K/mm3 (1.1-4.5); Metamyelocytes Percent 1 %; Monocytes Absolute Manual 3.11 K/mm3 (0.1-0.90); Monocytes Percent Manual 5 % (3-9); Neutrophils Percent Manual 86 % (46-73); Total Cells Counted 100
[2023-12-09 10:08] LABS: Platelet Estimate Increased (Adequate)
[2023-12-09 10:10] LABS: Anisocytosis 1+; Schistocytes None Seen
[2023-12-09 10:11] LABS: Hypochromasia 1+
--- NOTE | 2023-12-09 10:57 | ED.SYNCOPE ---
HPI - Syncope General Chief Complaint: Syncope Stated Complaint: syncope Time Seen by Provider: 12/09/23 09:43 History of Present Illness HPI narrative: 87-year-old male presenting after multiple syncopal episodes. States that he has been feeling increasingly weak over the last few days and has had a bit of lightheadedness but he has not passed out until today. His states that he passed out 3 times and he did strike his head on the refrigerator denting it. Complains of a skin tear to his right arm. States that he has also been having diarrhea. No further complaints. Related Data Home Medications Medication Instructions Recorded Confirmed aspirin 81 mg tablet,delayed 81 mg PO DAILY 04/03/19 12/09/23 release atorvastatin 20 mg tablet 20 mg PO DAILY 04/03/19 12/09/23 multivitamin (One-A-Day Essential 1 tablet PO DAILY 04/03/19 12/09/23 tablet) hydroxyurea 500 mg capsule 500 mg PO Q48H 03/30/22 12/09/23 Dulcolax (magnesium hydroxide) 1,200 mg PO PRN PRN Constipation 12/27/22 12/09/23 ferrous sulfate 325 mg PO BID 12/27/22 12/09/23 metoprolol tartrate 25 mg tablet 12.5 mg PO Q12H 12/09/23 12/09/23 tamsulosin 0.4 mg capsule 0.4 mg PO DAILY 12/09/23 12/09/23 Allergies Allergy/AdvReac Type Severity Reaction Status Date / Time No Known Allergies Allergy Verified 12/09/23 18:46 Review of Systems Review of Systems: All systems reviewed & are unremarkable except as noted in HPI and below [facility] Past Medical History Medical History BPH (benign prostatic hyperplasia) Greater trochanter fracture History of coronary artery disease History of hyperlipidemia History of hypertension Polycythemia vera Reflux esophagitis Skin cancer Surgical History Surgical History History of coronary angioplasty with insertion of stent S/P CABG (coronary artery bypass graft) Status post insertion of iliac artery stent Family History Family History Other Heart disease Social History Social History Smoking packs per day: 1.5 Smoking cigarettes per day: 30.0 Years smoked: 30 Smoking pack-years: 45.00 Smoking status: Former smoker Tobacco type: cigarettes Second hand tobacco smoke exposure: No Smoking end date: 04/16/83 Alcohol intake: never Substance use: never Substance use type: does not use Do You Feel Safe in your Home?: Yes Lack of Transportation: No Lack of Food: Never True Current Housing: I Have Housing Concerned About Future Housing: No Difficulty Paying Gas/Electric Bills: No Difficulty Paying for Meds: No Currently Unemployed: No Education: High School Diploma/GED Difficulty w/ Childcare or Family Care: No Living arrangements: with family Occupation/Education: retired Gender identity (if verbalized by the patient): Male Spiritual care concerns: No Exam Narrative: GENERAL: Nontoxic, no acute distress HEAD: Normocephalic, atraumatic. EYES: PERRLA and EOMI. ENT: Mucous membranes dry NECK: Supple. no midline tenderness of cervical spine, thoracic spine, lumbar spine CHEST: Clear to auscultation. No respiratory distress. HEART: Regular rate and rhythm. No murmur heard. Normal peripheral pulses. ABDOMEN: Soft, nontender, nondistended RECTAL: melenic stool that is Hemoccult positive EXTREMITIES: Normal range of motion. SKIN: Warm, dry, no rash. NEURO:Alert and oriented x3. PSYCH: Normal mood and affect. Course Vital Signs Vital signs: Vital Signs Temperature 97.9 F 12/09/23 09:51 Pulse Rate 85 12/09/23 09:51 Respiratory Rate 16 12/09/23 09:51 Blood Pressure 132/62 12/09/23 09:51 Pulse Oximetry 100 12/09/23 09:51 Oxygen Delivery Room Air 12/09/23 09:51 Temperature 96.7 F L 12/10/23 08:00
[2023-12-09] MEDS: SODIUM CHLORIDE 0.9% IV 1,000 ML 999 ML IV CONT ×2 (11:53→12:36)
[2023-12-09 12:04] LABS: Troponin I < 0.012 ng/mL (0.000-0.034)
[2023-12-09 12:13] LABS: Lipase 146 U/L (23-300); Magnesium 1.6 mg/dL (1.6-2.3)
[2023-12-09 12:15] LABS: Lactic Acid Reflex 2.4 mmol/L (0.7-2.0)
[2023-12-09 12:18] LABS: INR 1.7; Partial Thromboplastin Time 40.8 Seconds (22.3-36.8); Prothrombin Time 20.1 Seconds (11.1-14.7)
[2023-12-09 12:24] LABS: Add Urine Microscopic? YES; Appearance Urine Cloudy (Clear); Bacteria Urine None Seen /hpf; Bilirubin Urine Negative (Negative); Blood Urine Negative (Negative); Color Urine Yellow (Yellow); Glucose Urine UA Negative (Negative); Ketones Urine Negative (Negative); Leukocyte Esterase Ur Negative LEU/UL (Negative); Need Manual Microscopic Reviewed; Nitrate Urine Negative (Negative); Non Pathogenic Casts >20; Protein Urine 1+ mg/dL (Negative); RBC Urine 0-2 /hpf (0-2); Squamous Epithelial Cell Urine Few /hpf (Few); Urobilinogen Urine 0.2 mg/dL (<2.0); WBC Urine 0-5 /hpf (0-3); pH Urine 5.5 (5.0-9.0)
[2023-12-09 12:45] LABS: Troponin I < 0.012 ng/mL (0.000-0.034)
[2023-12-09] MEDS: PIPERACILLIN/TAZ 4.5G/NS 100ML 4.5 GM/100 ML BAG IVPB (13:25)
[2023-12-09] MEDS: VANCOMYCIN 2,000 MG/NS 500 ML BAG 250 MG IVPB (13:25)
--- NOTE | 2023-12-09 14:20 | PM.IMHP ---
H&P: HPI History of Present Illness Date/Time: 12/09/23 14:20 Chief Complaint: syncope Narrative: This is an 87-year-old male with a significant past medical history of BPH, coronary artery disease, hyperlipidemia, hypertension, polycythemia vera, GERD, skin cancer, history of CABG, former smoker who presented to the hospital after multiple episodes of syncope and diarrhea. Patient states he was feeling weak and lightheaded for a few days but had not passed out until today. he states he had multiple diarrhea bowel movements that started today. He denied any sick contacts. He states that he passed out 3 times and hit his head on the refrigerator. He also had some skin tears to his right forearm. Workup in the hospital included head CT which was negative for any acute intracranial process. Chest x-ray which showed mild scarring at the lung opacities and mild atelectasis in the lower lung zones. 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 Initial labs show a white blood cell count of 62.2, RBC 4.37, hemoglobin 11.0, platelet count 884, sodium 134, chloride 96, anion gap 13, creatinine 1.6, EGFR 41, lactic acid 2.4, troponin negative x2, liver enzymes were normal, lipase 146. C diff was negative. UA was also obtained which showed cloudy appearance, 1+ urine protein, otherwise normal. Blood cultures were obtained and are pending. Patient was given 2 L of normal saline, Zosyn, vancomycin in the ED. Review of Systems Review of Systems: All systems reviewed & are unremarkable except as noted in HPI and below Constitutional: Constitutional: Reports as per HPI and Reports no additional constitutional complaints Eyes: Eyes: Reports as per HPI and Reports no additional eye complaints ENT: Reports system reviewed and no additional complaints, except as documented and Reports as per HPI Cardiovascular: Cardiovascular: Reports as per HPI and Reports no additional cardiovascular complaints Respiratory: Respiratory: Reports as per HPI and Reports no additional respiratory complaints Gastrointestinal: Gastrointestinal: Reports as per HPI and Reports no additional gastrointestinal complaints Genitourinary: Genitourinary: Reports no additional male genitourinary complaints and Reports as per HPI Musculoskeletal: Musculoskeletal: Reports no additional musculoskeletal complaints and Reports as per HPI Integumentary/Breasts: Skin/Breast: Reports system reviewed and no additional complaints, except as docu and Reports as per HPI Neurologic: Reports system reviewed and no additional complaints, except as documented and Reports as per HPI Psychiatric: Psychiatric: Reports no additional psychiatric complaints and Reports as per HPI [facility] Past Medical History Medical History BPH (benign prostatic hyperplasia) Greater trochanter fracture History of coronary artery disease History of hyperlipidemia History of hypertension Polycythemia vera Reflux esophagitis Skin cancer Surgical History Surgical History History of coronary angioplasty with insertion of stent S/P CABG (coronary artery bypass graft) Status post insertion of iliac artery stent Family History Family History Other Heart disease Social History Social History Smoking packs per day: 1.5 Smoking cigarettes per day: 30.0 Years smoked: 30 Smoking pack-years: 45.00 Smoking status: Former smoker Tobacco type: cigarettes Second hand tobacco smoke exposure: No Smoking end date: 04/16/83 Alcohol intake: never Substance use: never Substance use type: does not use Do You Feel Safe in your Home?: Yes Lack of Transportation: No Lack
[2023-12-09 15:01] LABS: Reflex Lactic Acid Yes or No Add Lactic
[2023-12-09 15:35] LABS: Lactic Acid 2.1 mmol/L (0.7-2.0)
[2023-12-09 15:48] LABS: Troponin I < 0.012 ng/mL (0.000-0.034)
--- NOTE | 2023-12-09 16:12 | PC.NURSE ---
Has had 3 large maroon color BM, loose not formed at all.
--- NOTE | 2023-12-09 16:27 | PC.NURSE ---
vanco still infusing due to pt not bending arm and occluding line
[2023-12-09 16:56] LABS: Toxigenic C. Diff NEGATIVE (NEGATIVE)
--- NOTE | 2023-12-09 17:00 | ADMGEN ---
This patient, Osvaldo Santiago, was admitted to [facility] Surg Room 328-01. Patient/family oriented to hospital policies and general routines including ID bracelet, bed and alarms, visiting hours, pain management, procedures, bathroom and other care routines, personal items, smoking policy, room service/diet, and visiting hours. Information on how to activate the Rapid Response Team has been discussed. Patient/Family are encouraged to report perceived risks to care and to ask questions if they do not understand what they are told or what they should do.
[2023-12-09 20:25] LABS: Lactic Acid Reflex 2.6 mmol/L (0.7-2.0)
[2023-12-09 21:33] LABS: IFOB Positive Control Positive; Immunochemical Fecal Occult Bl Positive (N)
[2023-12-09 22:08] LABS: MRSA (PCR) NOT DETECTED (NOT DETECTE)
[2023-12-09] MEDS: METOPROLOL TARTRATE 12.5 MG TABLET PO (22:35)
[2023-12-09] MEDS: PIPERACILLN/TAZ 3.375GM/NS50ML 3.375 GM/50 ML BAG IVPB (22:35)
[2023-12-10] VITALS: PULSE 123
[2023-12-10 04:00] VITALS: BP 88/42; PULSE 120; TEMP 35.8; O2SAT 94
[2023-12-10] MEDS: SODIUM CHLORIDE 0.9% IV 1,000 ML 999 ML IV CONT (05:07)
[2023-12-10] MEDS: PIPERACILLN/TAZ 3.375GM/NS50ML 3.375 GM/50 ML BAG IVPB (06:20)
[2023-12-10 07:41] LABS: Hematocrit 23.1 % (42.0-52.0); Mean Corpuscular HGB Conc 25.5 g/dl (32-36); Mean Corpuscular Volume 101.8 fl (80-100); Mean Platelet Volume 11.3 fl (7.4-10.4); Red Blood Count 2.27 M/mm3 (4.6-6.20); Red Cell Distribution Width 17.8 % (11.5-14.5)
[2023-12-10 08:00] VITALS: BP 103/44; PULSE 117; PULSE 119; RESP 28; TEMP 35.9; O2SAT 92
--- NOTE | 2023-12-10 08:09 | WPDGICN ---
Assessment and Plan Assessment and plan Plan 1) 2) 3) The patient will follow up in the office in [ ] months or sooner if needed. The patients follow up office visit will be determined at time of endoscopy. This report may have been done utilizing a voice recognition system. Attempts have been made to correct errors. However, there may be uncorrected grammatical, spelling, and recognition errors present. GI Consult Note Consult date/time: 12/10/23 08:09 HPI: Osvaldo Santiago is a 87 year old male Review of Systems Constitutional: Constitutional: Reports as per HPI ENT: Reports as per HPI Cardiovascular: Cardiovascular: Reports as per HPI, Denies chest pain and Denies dyspnea Respiratory: Respiratory: Denies cough and Denies dyspnea Gastrointestinal: Gastrointestinal: Reports as per HPI Musculoskeletal: Musculoskeletal: Reports as per HPI Integumentary/Breasts: Skin/Breast: Reports as per HPI Psychiatric: Psychiatric: Reports as per HPI Endocrine: Endocrine: Reports no additional endocrine complaints Hematologic/Lymphatic: Hematologic/Lymphatic: Reports no additional hematologic/lymphatic complaints FOR[facility]LY [facility] Past Medical History Medical History BPH (benign prostatic hyperplasia) Greater trochanter fracture History of coronary artery disease History of hyperlipidemia History of hypertension Polycythemia vera Reflux esophagitis Skin cancer Surgical History Surgical History History of coronary angioplasty with insertion of stent S/P CABG (coronary artery bypass graft) Status post insertion of iliac artery stent Family History Family History Other Heart disease Social History Social History Smoking packs per day: 1.5 Smoking cigarettes per day: 30.0 Years smoked: 30 Smoking pack-years: 45.00 Smoking status: Former smoker Tobacco type: cigarettes Second hand tobacco smoke exposure: No Smoking end date: 04/16/83 Alcohol intake: never Substance use: never Substance use type: does not use Do You Feel Safe in your Home?: Yes Lack of Transportation: No Lack of Food: Never True Current Housing: I Have Housing Concerned About Future Housing: No Difficulty Paying Gas/Electric Bills: No Difficulty Paying for Meds: No Currently Unemployed: No Education: High School Diploma/GED Difficulty w/ Childcare or Family Care: No Living arrangements: with family Occupation/Education: retired Gender identity (if verbalized by the patient): Male Spiritual care concerns: No Meds Home Medications and Allergies Home Medications Medication Instructions Recorded Confirmed Type aspirin 81 mg tablet,delayed 81 mg PO DAILY 04/03/19 12/09/23 History release atorvastatin 20 mg tablet 20 mg PO DAILY 04/03/19 12/09/23 History multivitamin (One-A-Day Essential 1 tablet PO DAILY 04/03/19 12/09/23 History tablet) hydroxyurea 500 mg capsule 500 mg PO Q48H 03/30/22 12/09/23 History Dulcolax (magnesium hydroxide) 1,200 mg PO PRN PRN Constipation 12/27/22 12/09/23 History ferrous sulfate 325 mg PO BID 12/27/22 12/09/23 History hydrochlorothiazide 12.5 mg tablet 12.5 mg PO DAILY #90 tabs 03/13/23 12/09/23 Rx metoprolol tartrate 25 mg tablet 12.5 mg PO Q12H 12/09/23 12/09/23 History tamsulosin 0.4 mg capsule 0.4 mg PO DAILY 12/09/23 12/09/23 History Allergies Allergy/AdvReac Type Severity Reaction Status Date / Time No Known Allergies Allergy Verified 12/09/23 18:46 Vital Signs Vital Signs - 24 hr 12/09/23 09:51 12/09/23 09:57 12/09/23 09:57 Temperature 97.9 F Pulse Rate 85 92 88 Respiratory Rate 16 Blood Pressure 132/62 132/62 86/49 L Pulse Oximetry 100 Oxygen Delivery Room Air 12/09/23 10:00 12/09/23 12:
[2023-12-10 08:36] LABS: Albumin Level 2.5 g/dL (3.5-5.1); Alkaline Phosphatase 73 U/L (38-126); Anion Gap 26 mmol/L (4-12); Aspartate Amino Transferase 47 U/L (17-59); Bilirubin,Total 0.3 mg/dL (0.2-1.3); Blood Urea Nitrogen 59 mg/dL (9-20); Calcium 7.5 mg/dL (8.4-10.2); Carbon Dioxide 6 mmol/L (22-30); Chloride 102 mmol/L (98-107); Estimated CRCL calculation 19 ml/min; Estimated Glomerular Filt Rate 20; Glucose 148 mg/dL (65-110); Potassium 5.3 mmol/L (3.4-5.0); Sodium 134 mmol/L (137-145)
[2023-12-10 08:40] LABS: Hemoglobin 5.9 g/dL (14.0-18.0); Platelet Count Result 1044 k/mm3 (150-375); White Blood Count 114.5 K/mm3 (4.5-10.0)
[2023-12-10 08:42] LABS: Basophils Absolute Manual 1.14 K/mm3 (0.0-0.1); Basophils Percent Manual 1 % (0-1); Eosinophils Absolute Manual 1.14 K/mm3 (0.02-0.50); Eosinophils Percent Manual 1 % (0-4); Hypochromasia 1+; Lymphocytes Absolute Manual 19.46 K/mm3 (1.1-4.5); Lymphocytes Percent Manual 17 % (18-44); Monocytes Absolute Manual 12.59 K/mm3 (0.1-0.90); Monocytes Percent Manual 11 % (3-9); Neutrophils Percent Manual 70 % (46-73); Platelet Estimate Increased (Adequate)
[2023-12-10 08:43] LABS: Schistocytes None Seen
[2023-12-10 08:53] LABS: Glucose Point of Care 166 mg/dl (65-105)
--- NOTE | 2023-12-10 08:55 | PC.NURSE ---
Patient at 0850.
--- NOTE | 2023-12-10 09:21 | PDCODEBLUE ---
Code Blue Note Code Blue Note Time Arrived at Code Blue: 831 Initial Rhythm on Arrival: CPR was being done. On pulse check pt was in V FiB Airway Management: Pt intubated during resuscitation Chest Compressions: In process on arrival to bedside Result of Code Armando: Pt Cardiac Rhythm Post Code: Asystole Code Armando Summary: Responded to marshall dubon in room 328. On my arrival CPR was being done and nurse reported the patient was on telemetry and became bradycardic and when she went to check on him he was unresponsive. One dose of epi had already been given. On next pulse check patient was in VFib. While I was directing the marshall dubon management I obtained brief history from patient's nurse. Patient admitted last night with syncope and has history of coronary disease status post CABG hyperlipidemia hypertension polycythemia and could smoking and was suspected of GI bleeding.. CPR was continued and at and patient was defibrillated with 200 joules. Patient was also given 300 mg of amiodarone. On next pulse check patient was in asystole with no pulse. CPR was continued. Patient was also given bicarbonate and started on IV fluid bolus. Blood glucose was checked 166. Patient was intubated during the code without any difficulty. Please refer to procedure note for details. Large amount of fresh bright blood was seen in the throat and going into trachea. Resuscitation was continued for more than 20 minutes patient remained in asystole with no pulse. Patient's family was contacted by the hospitalist while resuscitation was being performed. Despite more than 20 minutes of resuscitation efforts we were never able to get rhythm or pulse back. Patient received total of a dose of epinephrine. At that point we decided to discontinue further resuscitation efforts in agreement with hold Marshall Blue Team. Patient had no pulse and either of the femoral carotid arteries and no heart sounds. He was in asystole. Patient was pronounced at 8:50 a.m. Critical care time 30 minutes except separately billed procedures
--- NOTE | 2023-12-10 09:26 | WPDPROCEDUR ---
Procedures Intubation Intubation Date: 12/10/23 Intubation Time: 08:20 Consent: Procedure was done during code blue as emergency for medical necessity A pre-procedural Time-Out was completed immediately before starting the procedure and confirmed: Patient Identification, Site, Procedure, Patient Position and the Availability of Requisite Equipment: No Sedative: none Laryngoscope: fiber optic video scope Assist device used: fiber optic device ET tube size: 7.5 Tube secured depth (cm): 23 Tube secured location: lips Tube placement confirmation: visualized tube passing through cords, equal breath sounds bilaterally, no breath sounds over epigastrium and confirmation by capnometry Patient tolerated procedure: well Intubation complications: none
[2023-12-10 10:22] LABS: Alanine Aminotransferase 30 U/L (6-50)
--- NOTE | 2023-12-10 10:55 | PM.DDS ---
Discharge Summary Date and Time Date of : 12/10/23 Time of : 08:50 Provider Pronounced By: Provider Name of Provider That Pronounced: Dr Conley Probable Cause of Probable Cause of : end organ failure from GI bleed Summary Hospital Course: This is an 87-year-old male with a significant past medical history of BPH, coronary artery disease, hyperlipidemia, hypertension, polycythemia vera, GERD, skin cancer, history of CABG, former smoker who presented to the hospital after multiple episodes of syncope and diarrhea. Patient states he was feeling weak and lightheaded for a few days but had not passed out until today. he states he had multiple diarrhea bowel movements that started today. He denied any sick contacts. He states that he passed out 3 times and hit his head on the refrigerator. He also had some skin tears to his right forearm. Workup in the hospital included head CT which was negative for any acute intracranial process. Chest x-ray which showed mild scarring at the lung opacities and mild atelectasis in the lower lung zones. 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 Initial labs show a white blood cell count of 62.2, RBC 4.37, hemoglobin 11.0, platelet count 884, sodium 134, chloride 96, anion gap 13, creatinine 1.6, EGFR 41, lactic acid 2.4, troponin negative x2, liver enzymes were normal, lipase 146. C diff was negative. UA was also obtained which showed cloudy appearance, 1+ urine protein, otherwise normal. Blood cultures were obtained and are pending. Patient was given 2 L of normal saline, Zosyn, vancomycin in the ED. This provider assumed care this morning. Prior to me seeing the patient a rapid response was called. While in route to the patient room a marshall dubon was called. I arrived to the bedside and staff were providing chest compressions. According to the bedside nurse the patient became bradycardic on the monitor prompting staff to the bedside. He was unresponsive and CPR was initiated. The patient presented with syncope. Epinephrine 1 mg IVP was administered and NS bolus ordered. Dr Conley with ICU presented to the bedside and assumed care of code. I contacted the patient's and daughter to notify them of the code. Patient's wanted us to attempt all measures. Unfortunately efforts were futile (see code blue note) and the patient was pronounced at 8:[address] Conley. Additional Data Confirmation of as documented by pronouncing clinician: Pupillary Reflex, Palpable Pulses, Response to Stimuli, Heart Tones and Breath Sounds Name of Provider Notified: Christiana Enamorado Np Time Provider Notified: 08:50 Provider Requests Autopsy: No Family Requests Autopsy: No Geological Technician Notified: Yes Date [facility] Notified of : 12/10/23 Time [facility] Notified of : 09:36
== END 2023-12-10 08:50 | disposition expired | DRG 378 ==
LOC: ANHED 09:48 → ANH3MEDSUR 17:16
PROVIDERS: Nurse Practitioner Acute Care; Admitting Provider Internal Medicine; Emergency Provider Emergency Medicine; PCP Family Medicine; Visit Provider Nurse Practitioner Acute Care
DX: K92.2 Gastrointestinal hemorrhage, unspecified (principal); N17.9 Acute kidney failure, unspecified; R55 Syncope and collapse; E86.0 Dehydration; R19.7 Diarrhea, unspecified; I49.01 Ventricular fibrillation; R00.1 Bradycardia, unspecified; I46.9 Cardiac arrest, cause unspecified; I25.10 Atherosclerotic heart disease of native coronary artery without angina pectoris; N40.0 Benign prostatic hyperplasia without lower urinary tract symptoms; K21.9 Gastro-esophageal reflux disease without esophagitis; E78.5 Hyperlipidemia, unspecified; I10 Essential (primary) hypertension; D72.829 Elevated white blood cell count, unspecified; D45 Polycythemia vera; D75.839 Thrombocytosis, unspecified; D50.9 Iron deficiency anemia, unspecified; Z85.828 Personal history of other malignant neoplasm of skin; Z95.5 Presence of coronary angioplasty implant and graft; Z95.1 Presence of aortocoronary bypass graft; Z87.891 Personal history of nicotine dependence; Z79.82 Long term (current) use of aspirin
CPT/HCPCS: 31500; 36415; 70450; 71045; 74177; 80053; 81001; 82274; 82948; 83605; 83690; 83735; 84484; 85025; 85610; 85730; 86850; 86900; 86901; 87040; 87045; 87427; 87449; 87493; 87641; 92950; 93005; 96360; 99285; A9270; J0171; J0282; J2543; J3370; J7030; Q9967